=== PATIENT | male | born 1945 | race Caucasian/White ===

== ENCOUNTER 2019-03-01 12:20 | Inpatient (IN) | payer MEDICARE, MEDICAID ==
[~2019-03-01] VITALS: Ht 172.7 cm; Wt 72.6 kg
[2019-03-01 12:30] VITALS: BP 142/74
--- NOTE | 2019-03-01 12:30 | NUR ---
ED Nurse Note: Patient [facility] in by [facility] c/o left forearm infection, patient presents with a reddened area on his left forearm, wound does have a green discolartion to it, draining clear liquid, first noticed by staff at the prison. patient is alert and oriented x4 and ambulatory with a steady gait, tried 2 times for IV. patient did receive a patent IV on his right forearm 20 gauge, will wait for further orders
[2019-03-01] MEDS ORDERED: LACTULOSE20 GM/301 ORAL (12:38)
[2019-03-01] MEDS ORDERED: PROSCAR5 MG ORAL (12:38)
[2019-03-01] MEDS ORDERED: MELATONIN 1 MG1 EAC1 ORAL (12:38)
[2019-03-01] MEDS ORDERED: ATORVASTATIN CA20 MG ORAL (12:38)
[2019-03-01] MEDS ORDERED: OMEPRAZOLE20 M3 ORAL (12:38)
[2019-03-01] MEDS ORDERED: MULTIVITAMINS1 EAC2 ORAL (12:38)
[2019-03-01] MEDS ORDERED: CALCIUM + VITA1 EAC1 PO (12:38)
[2019-03-01] MEDS ORDERED: PRO-STAT LIQUID30 ML ORAL (12:38)
[2019-03-01] MEDS ORDERED: HYDRALAZINE HCL50 MG ORAL (12:38)
[2019-03-01] MEDS ORDERED: LISINOPRIL10 MG ORAL (12:38)
[2019-03-01] MEDS ORDERED: AMLODIPINE BESYL5 MG ORAL (12:38)
[2019-03-01] MEDS ORDERED: DOCUSATE SODIU100 MG ORAL (12:38)
[2019-03-01] MEDS ORDERED: FLOMAX0.4 MG ORAL (12:38)
[2019-03-01] MEDS ORDERED: ACETAMINOPHEN500 M5 ORAL (12:38)
[2019-03-01] MEDS ORDERED: Vancomycin 1.5 GM in NS 275 ML IVPB ONE (13:00)
[2019-03-01] MEDS ORDERED: Ampicillin/Sulbactam Sod 3 GM in NS 110 ML IV SCH (13:00)
[2019-03-01 13:13] LABS: HEMATOCRIT 45.3 % (42.0-52.0); HEMOGLOBIN 14.8 G/DL (14.2-18.0); MEAN CORPUSCULAR VOLUME 91 FL (80-99); PLATELET COUNT 176 K/UL (150-450); RED BLOOD COUNT 4.97 M/UL (4.70-6.10); RED CELL DISTRIBUTION WIDTH 12.1 % (11.6-14.8)
[2019-03-01 13:15] LABS: WHITE BLOOD COUNT 36.7 K/UL (4.8-10.8)
[2019-03-01] MEDS ORDERED: NS 110 ML ONE (13:18)
[2019-03-01] MEDS ORDERED: Unasyn 1.5gm Vial ONE (13:18)
--- NOTE | 2019-03-01 13:23 | Diagnostic Imaging Report ---
Indication: Chest pain Comparison: None A single view chest radiograph was obtained. Findings: No definite infiltrate or pulmonary vascular congestion identified. Minimal platelike atelectasis demonstrated at the left lung base. The heart is enlarged. The aorta is mildly enlarged consistent with atherosclerotic vascular disease. The bones are osteopenic. Impression: No acute disease
[2019-03-01 13:26] LABS: ANION GAP 9 mmol/L (5-15); BLOOD UREA NITROGEN 23 mg/dL (7-18); CALCIUM 8.9 MG/DL (8.5-10.1); CARBON DIOXIDE 27 MMOL/L (21-32); CHLORIDE 101 MMOL/L (98-107); CREATININE 1.4 MG/DL (0.55-1.30); POTASSIUM 4.3 MMOL/L (3.5-5.1); SODIUM 137 MMOL/L (136-145)
[2019-03-01 13:39] LABS: ALANINE AMINOTRANSFERASE 15 U/L (12-78); ALBUMIN 3.2 G/DL (3.4-5.0); ALBUMIN/GLOBULIN RATIO 0.8 (1.0-2.7); ALKALINE PHOSPHATASE 90 U/L (46-116); ASPARTATE AMINO TRANSFERASE 19 U/L (15-37); BILIRUBIN,TOTAL 0.9 MG/DL (0.2-1.0); CKMB 1.1 NG/ML (0.0-3.6); CREATINE KINASE 81 U/L (26-308)
[2019-03-01] MEDS ORDERED: Sodium Chloride 2,200 ML IVLG ONE (13:45)
--- NOTE | 2019-03-01 14:15 | Emergency Room Report ---
History of Present Illness General Chief Complaint: Skin Rash/Abscess Source: Medical Record Present Illness HPI Patient is a 73-year-old male brought in by basic ambulance from facility after increased left upper extremity swelling and redness. He had gradual onset of symptoms. Patient had been noted to have prior chronic debilitation as well as difficulty with speech. He had been brought in for evaluation of left upper extremity infection. History is markedly limited by patient's mental status. Allergies: Coded Allergies: No Known Allergies (Unverified , 03/01/19) Patient History Past Medical History: see triage record Reviewed Nursing Documentation: PMH: Agreed; PSxH: Agreed Nursing Documentation-PMH Past Medical History: No History, Except For Hx Hypertension: Yes - coronary artery disease Review of Systems All Other Systems: limited - Review of systems: Review systems is limited by patient's being a poor historian Physical Exam Vital Signs Date Time Temp Pulse Resp B/P (MAP) Pulse Ox O2 Delivery O2 Flow Rate FiO2 03/01/19 12:27 98.1 64 16 142/74 (96) 95 Room Air Sp02 EP Interpretation: reviewed, normal General Appearance: well appearing, alert, non-toxic, Chronically Ill Head: atraumatic ENT: normal ENT inspection Neck: supple, no bony tend Respiratory: normal inspection, lungs clear, normal breath sounds, no respiratory distress, no retraction, no wheezing Cardiovascular #1: regular rate, rhythm, no edema Gastrointestinal: normal inspection, soft, no mass, no guarding Genitourinary: no CVA tenderness Musculoskeletal: normal inspection, back normal, normal range of motion Neurologic: alert, responsive Psychiatric: normal inspection, judgement/insight normal, mood/affect normal Skin: other - Left upper extremity swelling and redness Medical Decision Making Diagnostic Impression: Primary Impression: Left arm cellulitis Additional Impressions: Severe sepsis Abnormal EKG ER Course Patient presented for left upper extremity swelling and redness. Differential diagnosis include is not limited to cellulitis, abscess, necrotizing fasciitis, septic joint among others. Because of complexity of patient's case laboratory tests and imaging studies were ordered. Patient was noted to have a markedly elevated white blood count. Laboratory testing showed elevated lactic acid level. Blood cultures were obtained as well as lactic acid level. Patient started on IV fluids. He was given IV antibiotics. Patient was reassessed and was noted to have continued good perfusion to his extremities and improvement in vital signs. Patient was noted to have significant infection to the left upper extremity. Dr. Bolton was contacted for inpatient management due to need for inpatient monitoring and treatment. Labs Test 03/01/19 13:00 White Blood Count 36.7 K/UL (4.8-10.8) Red Blood Count 4.97 M/UL (4.70-6.10) Hemoglobin 14.8 G/DL (14.2-18.0) Hematocrit 45.3 % (42.0-52.0) Mean Corpuscular Volume 91 FL (80-99) Mean Corpuscular Hemoglobin 29.7 PG (27.0-31.0) Mean Corpuscular Hemoglobin Concent 32.7 G/DL (32.0-36.0) Red Cell Distribution Width 12.1 % (11.6-14.8) Platelet Count 176 K/UL (150-450) Mean Platelet Volume 6.6 FL (6.5-10.1) Neutrophils (%) (Auto) % (45.0-75.0) Lymphocytes (%) (Auto) % (20.0-45.0) Monocytes (%) (Auto) % (1.0-10.0) Eosinophils (%) (Auto) % (0.0-3.0) Basophils (%) (Auto) % (0.0-2.0) Differential Total Cells Counted 100 Neutrophils % (Manual) 93 % (45-75) Lymphocytes % (Manual) 4 % (20-45) Monocytes % (Manual) 3 % (1-10) Eosinophils % (Manual) 0 % (0-3) Basophils % (Manual) 0 % (0-2) Band Neutrophils 0 % (0-8) Platelet Estimate Adequate Platelet Morphology Normal Red Blood Cell Morphology Normal Sodium Level 137 MMOL/L (136-145) Potassium Level 4.3 MMOL/L (3.5-5.1) Chloride Level 101 MMOL/L (98-107) Carbon Dioxide Level 27 MMOL/L (21-32) Anion Gap 9 mmol/L (5-15) Blood Urea Nitrogen 23 mg/dL (7-18) Creatinine 1.4 MG/DL (0.55-1.30) Estimat Glomerular Filtration Rate mL/min (>60) Glucose Level 116 MG/DL (74-106) Lactic Acid Level 2.40 mmol/L (0.4-2.0) Calcium Level 8.9 MG/DL (8.5-10.1) Total Bilirubin 0.9 MG/DL (0.2-1.0) Aspartate Amino Transf (AST/SGOT) 19 U/L (15-37) Alanine Aminotransferase (ALT/SGPT) 15 U/L (12-78) Alkaline Phosphatase 90 U/L (46-116) Total Creatine Kinase 81 U/L (26-308) Creatine Kinase MB 1.1 NG/ML (0.0-3.6) Creatine Kinase MB Relative Index 1.3 Troponin I 0.000 ng/mL (0.000-0.056) Total Protein 7.2 G/DL (6.4-8.2) Albumin 3.2 G/DL (3.4-5.0) Globulin 4.0 g/dL Albumin/Globulin Ratio 0.8 (1.0-2.7) EKG Diagnostic Results Rate: normal Rhythm: NSR ST Segments: no acute changes Last Vital Signs Date Time Temp Pulse Resp B/P (MAP) Pulse Ox O2 Delivery O2 Flow Rate FiO2 03/01/19 12:30 98.1 86 16 142/74 95 Room Air Status: unchanged Disposition: ADMITTED INPATIENT Condition: Stable Referrals: Jm Bolton MD (PCP) Yang Johnson MD Mar 01, 2019 14:15
[2019-03-01 14:30] VITALS: BP 125/76
--- NOTE | 2019-03-01 14:30 | NUR ---
ED Nurse Note: Patient refused CRE VRE swab
--- NOTE | 2019-03-01 15:16 | NUR ---
NURSE NOTES: Report received from [facility], ER. Patient not on floor at this time.
--- NOTE | 2019-03-01 15:25 | NUR ---
TRANSFER TO FLOOR: Patient transferred to Telemetry as ordered, per . Report given to DENA Boyd
--- NOTE | 2019-03-01 17:57 | Cardiology Progress Note ---
Assessment/Plan Assessment/Plan The patient is seen and examined, full consult note will be dictated. Objective Last 24 Hour Vital Signs Date Time Temp Pulse Resp B/P (MAP) Pulse Ox O2 Delivery O2 Flow Rate FiO2 03/01/19 16:00 77 03/01/19 15:20 98.8 82 16 128/73 95 Room Air 03/01/19 14:30 98.1 82 16 125/76 95 Room Air 03/01/19 12:30 98.1 86 16 142/74 95 Room Air 03/01/19 12:27 98.1 64 16 142/74 (96) 95 Room Air Laboratory Tests Test 03/01/19 13:00 03/01/19 14:40 White Blood Count 36.7 K/UL (4.8-10.8) *H Red Blood Count 4.97 M/UL (4.70-6.10) Hemoglobin 14.8 G/DL (14.2-18.0) Hematocrit 45.3 % (42.0-52.0) Mean Corpuscular Volume 91 FL (80-99) Mean Corpuscular Hemoglobin 29.7 PG (27.0-31.0) Mean Corpuscular Hemoglobin Concent 32.7 G/DL (32.0-36.0) Red Cell Distribution Width 12.1 % (11.6-14.8) Platelet Count 176 K/UL (150-450) Mean Platelet Volume 6.6 FL (6.5-10.1) Neutrophils (%) (Auto) % (45.0-75.0) Lymphocytes (%) (Auto) % (20.0-45.0) Monocytes (%) (Auto) % (1.0-10.0) Eosinophils (%) (Auto) % (0.0-3.0) Basophils (%) (Auto) % (0.0-2.0) Differential Total Cells Counted 100 Neutrophils % (Manual) 93 % (45-75) H Lymphocytes % (Manual) 4 % (20-45) L Monocytes % (Manual) 3 % (1-10) Eosinophils % (Manual) 0 % (0-3) Basophils % (Manual) 0 % (0-2) Band Neutrophils 0 % (0-8) Platelet Estimate Adequate Platelet Morphology Normal Red Blood Cell Morphology Normal Sodium Level 137 MMOL/L (136-145) Potassium Level 4.3 MMOL/L (3.5-5.1) Chloride Level 101 MMOL/L (98-107) Carbon Dioxide Level 27 MMOL/L (21-32) Anion Gap 9 mmol/L (5-15) Blood Urea Nitrogen 23 mg/dL (7-18) H Creatinine 1.4 MG/DL (0.55-1.30) H Estimat Glomerular Filtration Rate mL/min (>60) Glucose Level 116 MG/DL (74-106) H Lactic Acid Level 2.40 mmol/L (0.4-2.0) H 2.10 mmol/L (0.66-2.22) Calcium Level 8.9 MG/DL (8.5-10.1) Total Bilirubin 0.9 MG/DL (0.2-1.0) Aspartate Amino Transf (AST/SGOT) 19 U/L (15-37) Alanine Aminotransferase (ALT/SGPT) 15 U/L (12-78) Alkaline Phosphatase 90 U/L (46-116) Total Creatine Kinase 81 U/L (26-308) Creatine Kinase MB 1.1 NG/ML (0.0-3.6) Creatine Kinase MB Relative Index 1.3 Troponin I 0.000 ng/mL (0.000-0.056) Total Protein 7.2 G/DL (6.4-8.2) Albumin 3.2 G/DL (3.4-5.0) L Globulin 4.0 g/dL Albumin/Globulin Ratio 0.8 (1.0-2.7) L Jim Bae MD Mar 01, 2019 17:57
--- NOTE | 2019-03-01 19:37 | NUR ---
NURSE NOTES: Received pt and repot from DENA Murphy. Observed pt resting in bed with both eyes open. Pt is A/Ox3. front desk monitor is in placed, IV site intact, asymptomatic, and patent. Bed is in the lowest position and locked. Call light within reach. No signs and symptoms of acute distress noted at this time. Will continue plan of care.
--- NOTE | 2019-03-01 19:47 | NUR ---
HAND-OFF: Report given to DENA Matias. Pt. in stable condition. Plan of care endorsed.
[2019-03-01 20:00] VITALS: BP 143/82
[2019-03-01] MEDS: Lactulose 20gm/30ml UDC ORAL SCH (20:42)
[2019-03-01] MEDS: Tamsulosin 0.4mg cap ORAL SCH (20:42)
[2019-03-01] MEDS: Heparin 5000 units/ml inj SUBQ SCH (20:43)
[2019-03-01] MEDS ORDERED: Ampicillin/Sulbactam Sod 3 GM in NS 110 ML IVPB SCH (22:00)
--- NOTE | 2019-03-01 22:18 | Consultation ---
History of Present Illness General Date patient seen: Mar 01, 2019 Reason for Hospitalization: Skin Rash/Abscess Present Illness HPI this is a pleasant 73 year old male [facility] resident with multiple medical comorbidities who was noted to have left upper extremity cellulitis and drainage. Was referred to [facility] for evaluation where he was noted to have leukocytosis, lactic acidosis, abnormal labs. Admitted for care and work up. Surgery called to evaluate and assist with care. patient seen, chart reviewed, patient examined. currently states he is well. tolerating diet. comfortable. n on/v/f/c. he is aware of wound but unsure how long he has had it or how it formed. Allergies: Coded Allergies: No Known Allergies (Unverified , 03/01/19) Medication History Scheduled Acetaminophen (Acetaminophen), 650 MG ORAL Q4H, (Reported) Amino Acids/Protein Hydrolys (Pro-Stat Liquid), 30 ML ORAL DAILY, (Reported) Amlodipine Besylate* (Amlodipine Besylate*), 5 MG ORAL DAILY, (Reported) Atorvastatin Calcium* (Atorvastatin Calcium*), 10 MG ORAL BEDTIME, (Reported) Calcium Carbonate/Vitamin D3 (Calcium + Vitamin D Tablet), 1 EACH PO DAILY, ( Reported) Docusate Sodium* (Docusate Sodium*), 100 MG ORAL DAILY, (Reported) Finasteride* (Proscar*), 5 MG ORAL DAILY, (Reported) Hydralazine Hcl* (Hydralazine Hcl*), 50 MG ORAL EVERY 8 HOURS, (Reported) Lactulose (Lactulose*), 30 ML ORAL QID, (Reported) Lisinopril* (Lisinopril*), 20 MG ORAL DAILY, (Reported) Multivitamins* (Multivitamins*), 1 TAB ORAL DAILY, (Reported) Omeprazole (Omeprazole), 20 MG ORAL DAILY, (Reported) Tamsulosin HCl (Flomax), 0.4 MG ORAL DAILY, (Reported) Scheduled PRN Melatonin (Melatonin 1 Mg Tablet), 3 MG ORAL BEDTIME PRN for Insomnia, (Reported ) Patient History Limited by: medical condition History Provided By: Patient, Medical Record, PMD Healthcare decision maker Resuscitation status Full Code Advanced Directive on File Past Medical/Surgical History Past Medical/Surgical History: (1) Abnormal EKG (2) Severe sepsis (3) Left arm cellulitis Review of Systems Review of Symptoms General ROS: no weight loss or fever Psychological ROS: no depression or mood changes, no memory loss Ophthalmic ROS: no visual changes or eye irritation ENT ROS: no nasal congestion, hearing loss, dizziness Allergy and Immunology ROS: no allergic symptoms or urticaria Hematological and Lymphatic ROS: no swollen glands, unusual bleeding or bruising Endocrine ROS: no polyuria, polydipsia, weight changes, temperature intolerance Respiratory ROS: no cough, shortness of breath, or wheezing Cardiovascular ROS: no chest pain or dyspnea on exertion Gastrointestinal ROS: denies abdominal pain, no bright red blood in stool. Musculoskeletal ROS: no myalgias or arthralgias Neurological ROS: no TIA or stroke symptoms Dermatological ROS: no new or changing skin lesions, rashes or pruritis Physical Exam Physical Exam General appearance: alert, cooperative, no distress, appears stated age Head: Normocephalic, without obvious abnormality, atraumatic Eyes: conjunctivae/corneas clear. PERRL, EOM's intact. Fundi benign Throat: Lips, mucosa, and tongue normal. Teeth and gums normal Neck: supple, symmetrical, trachea midline, no adenopathy, thyroid: not enlarged, symmetric, no tenderness/mass/nodules, no carotid bruit and no JVD Lungs: clear to auscultation bilaterally Heart: regular rate and rhythm, S1, S2 normal, no murmur, click, rub or gallop Abdomen: soft, non-tender. Bowel sounds normal. No masses, no organomegaly Extremities: extremities edema Pulses: 2+ and symmetric Skin: Skin color, texture, turgor normal. No rashes or lesions Neurologic: Grossly normal Last 24 Hour Vital Signs Date Time Temp Pulse Resp B/P (MAP) Pulse Ox O2 Delivery O2 Flow Rate FiO2 03/01/19 20:00 97.7 78 18 143/82 (102) 97 03/01/19 16:00 77 03/01/19 15:46 Room Air 03/01/19 15:20 98.8 82 16 128/73 95 Room Air 03/01/19 14:30 98.1 82 16 125/76 95 Room Air 03/01/19 12:30 98.1 86 16 142/74 95 Room Air 03/01/19 12:27 98.1 64 16 142/74 (96) 95 Room Air Laboratory Tests Test 03/01/19 13:00 03/01/19 14:40 White Blood Count 36.7 K/UL (4.8-10.8) *H Red Blood Count 4.97 M/UL (4.70-6.10) Hemoglobin 14.8 G/DL (14.2-18.0) Hematocrit 45.3 % (42.0-52.0) Mean Corpuscular Volume 91 FL (80-99) Mean Corpuscular Hemoglobin 29.7 PG (27.0-31.0) Mean Corpuscular Hemoglobin Concent 32.7 G/DL (32.0-36.0) Red Cell Distribution Width 12.1 % (11.6-14.8) Platelet Count 176 K/UL (150-450) Mean Platelet Volume 6.6 FL (6.5-10.1) Neutrophils (%) (Auto) % (45.0-75.0) Lymphocytes (%) (Auto) % (20.0-45.0) Monocytes (%) (Auto) % (1.0-10.0) Eosinophils (%) (Auto) % (0.0-3.0) Basophils (%) (Auto) % (0.0-2.0) Differential Total Cells Counted 100 Neutrophils % (Manual) 93 % (45-75) H Lymphocytes % (Manual) 4 % (20-45) L Monocytes % (Manual) 3 % (1-10) Eosinophils % (Manual) 0 % (0-3) Basophils % (Manual) 0 % (0-2) Band Neutrophils 0 % (0-8) Platelet Estimate Adequate Platelet Morphology Normal Red Blood Cell Morphology Normal Sodium Level 137 MMOL/L (136-145) Potassium Level 4.3 MMOL/L (3.5-5.1) Chloride Level 101 MMOL/L (98-107) Carbon Dioxide Level 27 MMOL/L (21-32) Anion Gap 9 mmol/L (5-15) Blood Urea Nitrogen 23 mg/dL (7-18) H Creatinine 1.4 MG/DL (0.55-1.30) H Estimat Glomerular Filtration Rate mL/min (>60) Glucose Level 116 MG/DL (74-106) H Lactic Acid Level 2.40 mmol/L (0.4-2.0) H 2.10 mmol/L (0.66-2.22) Calcium Level 8.9 MG/DL (8.5-10.1) Total Bilirubin 0.9 MG/DL (0.2-1.0) Aspartate Amino Transf (AST/SGOT) 19 U/L (15-37) Alanine Aminotransferase (ALT/SGPT) 15 U/L (12-78) Alkaline Phosphatase 90 U/L (46-116) Total Creatine Kinase 81 U/L (26-308) Creatine Kinase MB 1.1 NG/ML (0.0-3.6) Creatine Kinase MB Relative Index 1.3 Troponin I 0.000 ng/mL (0.000-0.056) Total Protein 7.2 G/DL (6.4-8.2) Albumin 3.2 G/DL (3.4-5.0) L Globulin 4.0 g/dL Albumin/Globulin Ratio 0.8 (1.0-2.7) L Height (Feet): 5 Height (Inches): 8.00 Weight (Pounds): 160 Medications Current Medications Medications (Trade) Dose Ordered Sig/Ajdon Route PRN Reason Start Time Stop Time Status Last Admin Dose Admin Acetaminophen (Tylenol) 650 mg Q6H PRN ORAL Mild Pain/Temp > 100.5 03/01/19 17:00 03/31/19 16:59 Amlodipine Besylate (Norvasc) 5 mg DAILY ORAL 03/02/19 09:00 04/01/19 08:59 Atorvastatin Calcium (Lipitor) 10 mg BEDTIME ORAL 03/01/19 21:00 03/31/19 20:59 03/01/19 20:42 Calcium/Vitamin D (OsCal D) 1 tab DAILY ORAL 03/02/19 09:00 04/01/19 08:59 Docusate Sodium (Colace) 100 mg DAILY ORAL 03/02/19 09:00 04/01/19 08:59 Finasteride (Proscar) 5 mg DAILY ORAL 03/02/19 09:00 04/01/19 08:59 Heparin Sodium (Porcine) (Heparin 5000 units/ml) 5,000 units EVERY 12 HOURS SUBQ 03/01/19 21:00 03/31/19 20:59 03/01/19 20:43 Lactulose (Cephulac) 20 gm FOUR TIMES A DAY ORAL 03/01/19 21:00 03/31/19 20:59 03/01/19 20:42 Meropenem 1 gm/ Sodium Chloride 55 ml @ 110 mls/hr Q12HR@1100,2300 IVPB 03/01/19 23:00 03/06/19 22:59 Multivitamins (Multivitamins) 1 tab DAILY ORAL 03/02/19 09:00 04/01/19 08:59 Tamsulosin HCl (Flomax) 0.4 mg QHS ORAL 03/01/19 21:00 03/31/19 20:59 03/01/19 20:42 Vancomycin HCl (Vanco rx to dose) 1 ea DAILY PRN MISC Per rx protocol 03/01/19 17:00 03/31/19 16:59 Vancomycin HCl 750 mg/Sodium Chloride 275 ml @ 183.333 mls/hr Q24H IVPB 03/02/19 14:00 03/07/19 13:59 Assessment/Plan Problem List: (1) Severe sepsis Assessment & Plan: 73M with leukocytosis, abnormal labs, lactic acidosis, and left arm cellulitis no abscess left arm wound superficial alfredito cute surgical intervention planned will follow with recs -wash wound daily, apply xerofoam and abx, then wrap daily -IV Abx -warm compress -AM labs will follow with recs thank you ICD Codes: A41.9 - Sepsis, unspecified organism; R65.20 - Severe sepsis without septic shock SNOMED: 95599877 (2) Left arm cellulitis ICD Codes: L03.114 - Cellulitis of left upper limb SNOMED: 970483024 Moody Siddiqi Mar 01, 2019 22:18
[2019-03-01] MEDS: Meropenem 1 GM in NS 55 ML IVPB SCH (22:49)
--- NOTE | 2019-03-01 23:30 | Consultation ---
DATE OF CONSULTATION: 03/01/2019 CARDIOLOGY CONSULTATION CONSULTING PHYSICIAN: Jim Bae M.D. REFERRING PHYSICIAN: Jm Bolton M.D. REASON FOR CONSULTATION: Management of coronary artery disease. HISTORY OF PRESENT ILLNESS: This is a very unfortunate 73-year-old gentleman, a resident of [facility], who was brought in by ambulance for evaluation and management of redness of the left arm with associated cough. The patient is a very poor historian and is not capable of providing any history. This report is prepared by using the medical records from the emergency department. At the time of arrival to the hospital, the patient was afebrile with temperature of 98.1 degrees Fahrenheit, blood pressure was 142/74 mmHg, and heart rate was 64. The patient has history of coronary artery disease and also risk factors such as hyperlipidemia. Initial laboratory in the emergency department revealed severe leukocytosis with WBC count of 36.7 and left shift. The patient also showed elevated BUN and creatinine 23 and 1.4 respectively. The first troponin I level was within normal limits at 0. The patient was admitted to telemetry for further evaluation and management. Cardiology consultation was made at the request of Dr. Bolton for management of coronary artery disease. PAST MEDICAL HISTORY: Hypertension, BPH, hyperlipidemia, coronary artery disease, GERD, dysphagia, and encephalopathy. MEDICATIONS: Acetaminophen 650 q.4 h. p.r.n. pain, ProStat liquid 30 mL p.o. daily, amlodipine 5 mg p.o. daily, atorvastatin 10 mg p.o. at bedtime, calcium and vitamin D tablet one tablet daily, Colace 100 mg daily, Proscar 5 mg p.o. daily, hydralazine 50 mg q.8 hours, lactulose 30 mL q.i.d., lisinopril 20 mg p.o. daily, melatonin 3 mg p.o. at bedtime p.r.n. insomnia, multivitamin one tablet p.o. daily, omeprazole 20 mg p.o. daily, and tamsulosin 0.4 mg p.o. daily. ALLERGIES: No known drug allergies. FAMILY HISTORY: No premature coronary artery disease in the first-degree relatives according to the records. REVIEW OF SYSTEMS: HEENT: Denies any headache, diplopia, or blurred vision. CONSTITUTIONAL: Denies any fever, chills, night sweats, or weight loss. CARDIOVASCULAR: Denies any chest pain, shortness breath, PND, orthopnea, or leg swelling. PULMONARY: Denies any cough, hemoptysis, or wheezing. Positive cough. GASTROINTESTINAL: Denies any nausea, vomiting, diarrhea, constipation, abdominal pain, or GI bleed. GENITOURINARY: Denies any dysuria, hematuria, or incontinence. NEUROLOGY: Denies any motor dysfunction, sensory deficit, or altered speech. SOCIAL HISTORY: Denies any tobacco, alcohol, or illicit drug use. Resident of [facility]. PHYSICAL EXAMINATION: VITAL SIGNS: Blood pressure was 142/74, pulse of 64, respirations of 16, O2 saturation of 95%, and temperature 98.1 degrees Fahrenheit. GENERAL: The patient is a very unfortunate 73-year-old gentleman, who is awake and poor historian. HEENT: Atraumatic and normocephalic. Anicteric. Pupils are equal, round, and reactive to light and accommodation. Extraocular muscles intact. NECK: JVP less than 5 cm. No carotid bruit. Carotid upstroke is 2+ bilaterally. CARDIOVASCULAR: Normal S1, S2. Regular rate and rhythm. No murmurs, gallops, or rubs. PMI is at fourth intercostal space in the midclavicular line. LUNGS: Clear to auscultation bilaterally. ABDOMEN: Soft, nontender, and nondistended. No hepatosplenomegaly. Positive bowel sounds. EXTREMITIES: Left arm in the dressing. Otherwise, no edema, clubbing, or cyanosis in the lower extremity. LABORATORY FINDINGS: Sodium 137, potassium is 4.3, chloride 101, bicarbonate 27, BUN of 23, creatinine 1.4, and glucose 116. Calcium is 8.9. Troponin I is 0. WBC 36.7, hemoglobin 14.8, hematocrit of 45.3, and platelet counts is 176,000. Chest x-ray showed no acute cardiopulmonary disease. ASSESSMENT AND PLAN: The patient is a very unfortunate 73-year-old gentleman, who is seen in Cardiology consultation. 1. History of coronary artery disease. I would like to continue the patient on atorvastatin given the fact that the patient will also be benefitted from aspirin 81 mg daily. 2. History of hypertension. We will continue with amlodipine, hydralazine, as well as lisinopril. 3. Left arm cellulitis. IV antibiotics at ID recommendation. 4. History of encephalopathy. 5. History of BPH. He will be continued on finasteride and tamsulosin. 6. History of hyperlipidemia. We will continue with atorvastatin. I would like to thank, Dr. Bolton, for allowing me to participate in the care of this patient. Jim Bae M.D. DR: LIBBY JOB#: [id number] CC:
[2019-03-02] VITALS (9 sets, daily range): BP systolic 133–163; BP diastolic 67–106
--- NOTE | 2019-03-02 04:43 | NUR ---
NURSE NOTES: Informed Dr. Bolton regarding pt's blood culture result for Gram positive cocci in chains.
[2019-03-02 07:16] LABS: HEMATOCRIT 39.1 % (42.0-52.0); HEMOGLOBIN 13.2 G/DL (14.2-18.0); MEAN CORPUSCULAR VOLUME 91 FL (80-99); PLATELET COUNT 162 K/UL (150-450); RED BLOOD COUNT 4.29 M/UL (4.70-6.10)
[2019-03-02 07:20] LABS: WHITE BLOOD COUNT 26.4 K/UL (4.8-10.8)
[2019-03-02 07:22] LABS: ANION GAP 10 mmol/L (5-15); BLOOD UREA NITROGEN 17 mg/dL (7-18); CALCIUM 8.2 MG/DL (8.5-10.1); CARBON DIOXIDE 23 MMOL/L (21-32); CHLORIDE 107 MMOL/L (98-107); CREATININE 1.1 MG/DL (0.55-1.30); POTASSIUM 3.7 MMOL/L (3.5-5.1); SODIUM 140 MMOL/L (136-145)
--- NOTE | 2019-03-02 07:34 | NUR ---
NURSE NOTES: Received WBC result from engineering laboratory technician. Current WBC (26.4) is trending down.
--- NOTE | 2019-03-02 07:35 | NUR ---
HAND-OFF: Report given to DENA العراقي.
--- NOTE | 2019-03-02 07:36 | NUR ---
NURSE NOTES: Received patient in bed. On room air. In no distress. Awake, verbal, able to verbalize some needs. Currently eating breakfast meal, able to feed self. Jerry light within reach. Bed in lowest position, bed alarm is on. Will continue plan of care.
[2019-03-02] MEDS: Lactulose 20gm/30ml UDC ORAL SCH (09:08)
[2019-03-02] MEDS: Calcium Carbonate 500mg w/Vit D 200iu tab ORAL SCH (09:08)
[2019-03-02] MEDS: Docusate 100mg cap ORAL SCH (09:09)
[2019-03-02] MEDS: Heparin 5000 units/ml inj SUBQ SCH ×2 (09:12→20:36)
--- NOTE | 2019-03-02 10:55 | History & Physical ---
History and Physical History & Physicial Full Dictation in progress. Jm Bolton MD Mar 02, 2019 10:55
[2019-03-02] MEDS: Meropenem 1 GM in NS 55 ML IVPB SCH ×2 (12:06→23:40)
[2019-03-02] MEDS ORDERED: Lactulose 20gm/30ml UDC ORAL PRN (12:30)
--- NOTE | 2019-03-02 13:45 | NUR ---
NURSE NOTES: Dr. Higgins at bedside.
[2019-03-02] MEDS: Vancomycin 750mg/NS 275ml IVPB SCH ×2 (14:21)
--- NOTE | 2019-03-02 14:36 | Infectious Diseases Prog Note ---
Assessment/Plan Problems: (1) Abscess of forearm, left Assessment & Plan: with purulence and cellulitis , continue wide spectrum antibiotics with vancomycin and meropenem pending final cultures , send abscess fluids culture if not done yet , apply topical bactroban (2) Left arm cellulitis Assessment & Plan: continue antibiotics pending cultures , local wound care (3) Sepsis Assessment & Plan: due to the above with gram positive cocci , already on vancomycin pending final cultures , will repeat blood culture to confirm clearance and obtain echo Subjective Constitutional: Reports: fatigue HEENT: Reports: no symptoms Respiratory: Reports: no symptoms Breasts: Reports: no symptoms Cardiovascular: Reports: no symptoms Gastrointestinal/Abdominal: Reports: no symptoms Genitourinary: Reports: no symptoms Neurologic: Reports: no symptoms Psychiatric: Reports: no symptoms Skin: Reports: ulcer, other - abscess Musculoskeletal: Reports: pain, swelling - left forearm Allergies: Coded Allergies: No Known Allergies (Unverified , 03/01/19) Objective Vital Signs Last 24 Hour Vital Signs Date Time Temp Pulse Resp B/P (MAP) Pulse Ox O2 Delivery O2 Flow Rate FiO2 03/02/19 12:00 98.2 77 21 140/106 (117) 95 03/02/19 09:08 78 151/76 03/02/19 09:00 Room Air 03/02/19 08:00 98.2 78 20 151/76 (101) 96 03/02/19 04:00 97.9 76 18 146/67 (93) 98 03/02/19 04:00 68 03/02/19 00:00 97.4 64 19 139/71 (93) 96 03/02/19 00:00 74 03/01/19 21:00 Room Air 03/01/19 20:00 66 03/01/19 20:00 97.7 78 18 143/82 (102) 97 03/01/19 16:00 77 03/01/19 15:46 Room Air 03/01/19 15:20 98.8 82 16 128/73 95 Room Air Height (Feet): 5 Height (Inches): 8.00 Weight (Pounds): 160 General Appearance: WD/WN, no acute distress, cachetic HEENT: normocephalic, atraumatic, anicteric, mucous membranes moist, PERRL Respiratory/Chest: chest wall non-tender, lungs clear, normal breath sounds, no respiratory distress, no accessory muscle use Cardiovascular: normal peripheral pulses, normal rate, regular rhythm, no gallop/murmur, no JVD Abdomen: normal bowel sounds, soft, non tender, no organomegaly, non distended , no mass, no scars Genitourinary: normal external genitalia Extremities: no cyanosis, no clubbing Skin: no rash, ulcers, other - cellulitis on the left forearm with skin abscess Neurologic/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, no motor/sensory deficits, alert, responsive Lymphatic: no neck adenopathy, no groin adenopathy Musculoskeletal: normal muscle bulk, no effusion Microbiology Date/Time Source Procedure Growth Status 03/01/19 13:15 Blood Blood Culture - Preliminary Resulted 03/01/19 13:00 Blood Blood Culture - Preliminary Gram Positive Cocci Resulted Laboratory Tests Test 03/01/19 14:40 03/02/19 06:15 03/02/19 09:00 Lactic Acid Level 2.10 mmol/L (0.66-2.22) 1.00 mmol/L (0.4-2.0) White Blood Count 26.4 K/UL (4.8-10.8) *H Red Blood Count 4.29 M/UL (4.70-6.10) L Hemoglobin 13.2 G/DL (14.2-18.0) L Hematocrit 39.1 % (42.0-52.0) L Mean Corpuscular Volume 91 FL (80-99) Mean Corpuscular Hemoglobin 30.9 PG (27.0-31.0) Mean Corpuscular Hemoglobin Concent 33.9 G/DL (32.0-36.0) Red Cell Distribution Width 11.0 % (11.6-14.8) L Platelet Count 162 K/UL (150-450) Mean Platelet Volume 7.3 FL (6.5-10.1) Neutrophils (%) (Auto) % (45.0-75.0) Lymphocytes (%) (Auto) % (20.0-45.0) Monocytes (%) (Auto) % (1.0-10.0) Eosinophils (%) (Auto) % (0.0-3.0) Basophils (%) (Auto) % (0.0-2.0) Differential Total Cells Counted 100 Neutrophils % (Manual) 87 % (45-75) H Lymphocytes % (Manual) 6 % (20-45) L Monocytes % (Manual) 7 % (1-10) Eosinophils % (Manual) 0 % (0-3) Basophils % (Manual) 0 % (0-2) Band Neutrophils 0 % (0-8) Platelet Estimate Adequate Platelet Morphology Normal Red Blood Cell Morphology Normal Sodium Level 140 MMOL/L (136-145) Potassium Level 3.7 MMOL/L (3.5-5.1) Chloride Level 107 MMOL/L (98-107) Carbon Dioxide Level 23 MMOL/L (21-32) Anion Gap 10 mmol/L (5-15) Blood Urea Nitrogen 17 mg/dL (7-18) Creatinine 1.1 MG/DL (0.55-1.30) Estimat Glomerular Filtration Rate mL/min (>60) Glucose Level 89 MG/DL (74-106) Calcium Level 8.2 MG/DL (8.5-10.1) L Current Medications Medications (Trade) Dose Ordered Sig/Jadon Route PRN Reason Start Time Stop Time Status Last Admin Dose Admin Acetaminophen (Tylenol) 650 mg Q6H PRN ORAL Mild Pain/Temp > 100.5 03/01/19 17:00 03/31/19 16:59 Amlodipine Besylate (Norvasc) 10 mg DAILY ORAL 03/03/19 09:00 04/02/19 08:59 Atorvastatin Calcium (Lipitor) 10 mg BEDTIME ORAL 03/01/19 21:00 03/31/19 20:59 03/01/19 20:42 Calcium/Vitamin D (OsCal D) 1 tab DAILY ORAL 03/02/19 09:00 04/01/19 08:59 03/02/19 09:08 Docusate Sodium (Colace) 100 mg DAILY ORAL 03/02/19 09:00 04/01/19 08:59 03/02/19 09:09 Finasteride (Proscar) 5 mg DAILY ORAL 03/02/19 09:00 04/01/19 08:59 03/02/19 09:09 Heparin Sodium (Porcine) (Heparin 5000 units/ml) 5,000 units EVERY 12 HOURS SUBQ 03/01/19 21:00 03/31/19 20:59 03/02/19 09:12 Lactulose (Cephulac) 20 gm Q8H PRN ORAL Constipation 03/02/19 12:30 04/01/19 12:29 Meropenem 1 gm/ Sodium Chloride 55 ml @ 110 mls/hr Q12HR@1100,2300 IVPB 03/01/19 23:00 03/06/19 22:59 03/02/19 12:06 Multivitamins (Multivitamins) 1 tab DAILY ORAL 03/02/19 09:00 04/01/19 08:59 03/02/19 09:08 Tamsulosin HCl (Flomax) 0.4 mg QHS ORAL 03/01/19 21:00 03/31/19 20:59 03/01/19 20:42 Vancomycin HCl (Vanco rx to dose) 1 ea DAILY PRN MISC Per rx protocol 03/01/19 17:00 03/31/19 16:59 Vancomycin HCl 750 mg/Sodium Chloride 275 ml @ 183.333 mls/hr Q24H IVPB 03/02/19 14:00 03/07/19 13:59 03/02/19 14:21 Arnie Higgins M.D. Mar 02, 2019 14:35
--- NOTE | 2019-03-02 14:39 | NUR ---
CASE MANAGEMENT: REVIEW 73 YR OLD MALE BIBA FROM [facility] CC: SKIN RASH/ ABSCESS SI: LEFT UPPER EXTREMITY CELLULITIS 98.1 64 16 142/74 95% RA WBC 36.7; BUN+ 23; CR 1.4; LA 2.40 IS: IV VANCOMYCIN X1 IV AMPICILLIN X1 IVF NS BOLUS X2 : TO 2E TELE UNIT PLAN: BLOOD CX PENDING CARDIO CONSULT
--- NOTE | 2019-03-02 15:45 | History and Physical Report ---
DATE OF ADMISSION: 03/01/2019 SOURCE OF INFORMATION: The patient and EMR. HISTORY OF PRESENT ILLNESS: The patient is a pleasant white male. He has a chronic history of psychiatric disorder. Reportedly, he had infection in the left upper extremity that is worsening. He is currently residing in a longterm facility, was transferred for the completion of workup. At the time of evaluation, the patient is complaining of mild pain in the left upper extremity. Denies fever or chills. Poor historian. REVIEW OF SYSTEMS: Limited evaluation, however, 12 elements of review of systems within this limitation is obtained as detailed in HPI. CURRENT HOSPITAL MEDICATIONS: Including amlodipine, Proscar, vancomycin. PAST MEDICAL HISTORY: Including but not limited to, BPH, hypertension, psychiatric disorder, decline in cognition. SOCIAL HISTORY: The patient is residing in a longterm facility. No active history of tobacco use, alcohol abuse or drug abuse was reported. PAST SURGICAL HISTORY: Unknown. PHYSICAL EXAMINATION: VITAL SIGNS: Blood pressure 160/80, temperature 98.2, pulse oximetry 98% on room air, respiratory rate 18, and pulse rate 72. HEAD AND NECK: Atraumatic and normocephalic. CHEST: Clear to auscultation. HEART: S1, S2. Regular rate and rhythm. ABDOMEN: Soft. No organomegaly MUSCULOSKELETAL: No gross lateralized motor deficit. Positive for diffuse erythema and warmness on the left upper extremity. NEUROLOGY: The patient is awake, alert x1. LABORATORY DATA: Laboratory work dated March 01, 2019, shows WBC 26, hemoglobin of 13.2, and platelets of 162. Lactic acid of 2.4. ASSESSMENT: 1. Sepsis. 2. Left upper extremity cellulitis. 3. Hypertension. 4. BPH. 5. Psychiatric disorder. 6. GI and DVT prophylaxis. PLAN OF CARE: Start the patient on IV hydration and crystalloids. IV antibiotics. Pending the cultures. Infectious Disease, Dr. Higgins notified. Time of this dictation does not reflect the actual time of encounter. Jm Bolton M.D. DR: SONJA JOB#: [id number] CC:
--- NOTE | 2019-03-02 16:40 | Surgery Progress Note ---
Surgery Progress Note Subjective Additional Comments afebrile labs improving micro noted and possible contaminant exam stable Objective Last 24 Hour Vital Signs Date Time Temp Pulse Resp B/P (MAP) Pulse Ox O2 Delivery O2 Flow Rate FiO2 03/02/19 12:00 98.2 77 21 140/106 (117) 95 03/02/19 11:32 65 03/02/19 09:08 78 151/76 03/02/19 09:00 Room Air 03/02/19 08:00 98.2 78 20 151/76 (101) 96 03/02/19 07:48 65 03/02/19 04:00 97.9 76 18 146/67 (93) 98 03/02/19 04:00 68 03/02/19 00:00 97.4 64 19 139/71 (93) 96 03/02/19 00:00 74 03/01/19 21:00 Room Air 03/01/19 20:00 66 03/01/19 20:00 97.7 78 18 143/82 (102) 97 I&O Intake and Output 03/01/19 03/02/19 19:00 07:00 Intake Total 3200 ml Balance 3200 ml Intake IV Total 3200 ml # Voids 2 Dressing: saturated Wound: clean Cardiovascular: RSR Respiratory: clear Abdomen: soft, non-tender, present bowel sounds Extremities: edema, tenderness, no cyanosis Laboratory Tests Test 03/02/19 06:15 03/02/19 09:00 White Blood Count 26.4 K/UL (4.8-10.8) *H Red Blood Count 4.29 M/UL (4.70-6.10) L Hemoglobin 13.2 G/DL (14.2-18.0) L Hematocrit 39.1 % (42.0-52.0) L Mean Corpuscular Volume 91 FL (80-99) Mean Corpuscular Hemoglobin 30.9 PG (27.0-31.0) Mean Corpuscular Hemoglobin Concent 33.9 G/DL (32.0-36.0) Red Cell Distribution Width 11.0 % (11.6-14.8) L Platelet Count 162 K/UL (150-450) Mean Platelet Volume 7.3 FL (6.5-10.1) Neutrophils (%) (Auto) % (45.0-75.0) Lymphocytes (%) (Auto) % (20.0-45.0) Monocytes (%) (Auto) % (1.0-10.0) Eosinophils (%) (Auto) % (0.0-3.0) Basophils (%) (Auto) % (0.0-2.0) Differential Total Cells Counted 100 Neutrophils % (Manual) 87 % (45-75) H Lymphocytes % (Manual) 6 % (20-45) L Monocytes % (Manual) 7 % (1-10) Eosinophils % (Manual) 0 % (0-3) Basophils % (Manual) 0 % (0-2) Band Neutrophils 0 % (0-8) Platelet Estimate Adequate Platelet Morphology Normal Red Blood Cell Morphology Normal Sodium Level 140 MMOL/L (136-145) Potassium Level 3.7 MMOL/L (3.5-5.1) Chloride Level 107 MMOL/L (98-107) Carbon Dioxide Level 23 MMOL/L (21-32) Anion Gap 10 mmol/L (5-15) Blood Urea Nitrogen 17 mg/dL (7-18) Creatinine 1.1 MG/DL (0.55-1.30) Estimat Glomerular Filtration Rate mL/min (>60) Glucose Level 89 MG/DL (74-106) Calcium Level 8.2 MG/DL (8.5-10.1) L Lactic Acid Level 1.00 mmol/L (0.4-2.0) Plan Problems: (1) Severe sepsis Assessment & Plan: 73M with leukocytosis, abnormal labs, lactic acidosis, and left arm cellulitis no abscess left arm wound superficial alfredito cute surgical intervention planned will follow with recs -wash wound daily, apply xerofoam and abx, then wrap daily -IV Abx -warm compress -AM labs UA, CXR, abx as per ID will follow with recs thank you (2) Left arm cellulitis Moody Siddiqi Mar 02, 2019 16:40
--- NOTE | 2019-03-02 18:00 | Consultation ---
DATE OF CONSULTATION: 03/01/2019 INFECTIOUS DISEASE CONSULTATION CONSULTING PHYSICIAN: Arnie Higgins M.D. REFERRING PHYSICIAN: Jm Bolton M.D. REASON FOR CONSULTATION: Sepsis, left forearm abscess, and skin cellulitis. Recommendation for antimicrobial treatment. HISTORY OF PRESENT ILLNESS: The patient is a 73-year-old male with past medical history of coronary artery disease, hypertension, who was brought in via ambulance from his [facility] facility to [facility] emergency room for increasing left upper extremity swelling, redness, and purulent discharge. The patient had multiple bruises on his left arm and he was scratching them with dirty hands as per his statement and they became more red and infected and started draining purulent like material. The patient had more redness and purulent discharge from the left forearm, so he was sent to the hospital for antibiotics treatment and further management. The patient was started on Vanco and Unasyn by the admitting physician and Infectious Disease consultation was requested for antibiotics treatment and further care since his white count was significantly elevated at 36.7 suggesting sepsis. As of note, the patient is a poor historian, could not provide good history. History was mainly obtained from the medical record and nursing staff. REVIEW OF SYSTEMS: A 14-point of system reviewed were all negative apart from the one I mentioned above in my H and P. PAST MEDICAL HISTORY: Significant for coronary artery disease, hypertension. PAST SURGICAL HISTORY: Negative, not on record. SOCIAL HISTORY: The patient lives in the [facility] facility. No recent drugs, tobacco, or alcohol. FAMILY HISTORY: Not contributory. ALLERGIES: He has no known drug allergies. MEDICATIONS: The patient is on Vanco dosed by pharmacy and Unasyn. For the rest of his medications, please refer to MAR. LABORATORY DATA: Labs showed white count of 36.7, hemoglobin of 14.8, platelet count of 176. BUN of 17, creatinine of 1.1. MICROBIOLOGY: Blood culture x2 pending. IMAGING: Chest x-ray showed no acute disease. PHYSICAL EXAMINATION: VITAL SIGNS: Temperature 98.8, pulse 82, respirations 16, blood pressure 128/73, saturation 95% on room air. GENERAL: Elderly male lying in bed. Awake, alert, not in acute distress. HEENT: Normocephalic, atraumatic. Pupils reactive to light. Pale sclerae. Moist oral mucosa. No exudate. Poor dental hygiene. NECK: Supple. No lymphadenopathy. CARDIOVASCULAR: Tachycardic. S1, S2 normal. No murmur. No gallop. LUNGS: Clear bilaterally. No wheezing or rhonchi. Diminished breathing sounds at the bases. ABDOMEN: Soft, nontender, nondistended. Normal bowel sounds. No hepatosplenomegaly or ascites. EXTREMITIES: He had left forearm large skin wound with purulence and subcutaneous area, large red area at the base. Tender to palpation. No decreased range of motion in his wrists or hands. Lower extremities, no edema or cyanosis. SKIN: No rash. No hives, but left arm cellulitis with purulence drainage and skin wound. ASSESSMENT AND RECOMMENDATION: 1. Left forearm skin abscess. We will switch Unasyn to meropenem to broaden his coverage pending his blood culture. Continue vancomycin dose per pharmacy to cover for sepsis. We will send wound culture if not done from ED. 2. Left forearm cellulitis. Management the same as above. Continue wide-spectrum antibiotics. Keep the arm elevated. Avoid scratching. Local wound care. 3. Sepsis with leukocytosis, suspect due to the above. We will broaden his coverage to meropenem and Vanco for now pending blood culture and wound culture results. We will obtain echocardiogram if his culture is positive for any growth. Thank you for the consult. ID will continue to follow. Arnie Higgins M.D. DR: ELENA JOB#: [id number] CC:
--- NOTE | 2019-03-02 19:30 | NUR ---
NURSE NOTES: Received patient from Dulce Maria FERNANDES. Patient in bed, on room air, alert and oriented x2 to self and place. On room air, no s/s of respiratory distress. No c/o pain or SOB. Bed in low position, locked, bed alarm on, call light within reach. 20 gauge IV on right forearm intact, patent, no signs of infiltration.
--- NOTE | 2019-03-02 19:50 | NUR ---
HAND-OFF: Report given to Mirza Ulloa RN.
[2019-03-02] MEDS: Tamsulosin 0.4mg cap ORAL SCH (20:31)
--- NOTE | 2019-03-02 21:15 | NUR ---
NURSE NOTES: Received orders from Dr. Bae to start metoprolol 50mg q12 hrs because patient had an episode of 5 beats of V-tach during the day.
--- NOTE | 2019-03-02 21:29 | Cardiology Progress Note ---
Assessment/Plan Assessment/Plan 1. History of coronary artery disease, continue atorvastatin and aspirin. 2. History of hypertension, continue amlodipine, hydralazine and lisinopril. 3. Non-sustained ventricular tachycardia, start metoprolol, Mg sulfate 2 gr IVPB x 1 dose. 4. Left arm cellulitis. IV antibiotics at ID recommendation. 5. History of encephalopathy. 6. History of BPH, on finasteride and tamsulosin. 7. History of hyperlipidemia, continue atorvastatin. Subjective Subjective A short run of non-sustained VT noted (5 beats) Objective Last 24 Hour Vital Signs Date Time Temp Pulse Resp B/P (MAP) Pulse Ox O2 Delivery O2 Flow Rate FiO2 03/02/19 20:00 98.5 67 20 147/84 (105) 96 03/02/19 18:21 133/79 (97) 03/02/19 16:00 98.2 62 21 163/83 (109) 94 03/02/19 15:26 60 03/02/19 12:00 98.2 77 21 140/106 (117) 95 03/02/19 11:32 65 03/02/19 09:08 78 151/76 03/02/19 09:00 Room Air 03/02/19 08:00 98.2 78 20 151/76 (101) 96 03/02/19 07:48 65 03/02/19 04:00 97.9 76 18 146/67 (93) 98 03/02/19 04:00 68 03/02/19 00:00 97.4 64 19 139/71 (93) 96 03/02/19 00:00 74 Intake and Output 03/01/19 03/02/19 19:00 07:00 Intake Total 3200 ml Balance 3200 ml Intake IV Total 3200 ml # Voids 2 2D Echo: LVEf 65%, Mild LVH, Grade I LVDD, RVSP 14 mmHg Laboratory Tests Test 03/02/19 06:15 03/02/19 09:00 White Blood Count 26.4 K/UL (4.8-10.8) *H Red Blood Count 4.29 M/UL (4.70-6.10) L Hemoglobin 13.2 G/DL (14.2-18.0) L Hematocrit 39.1 % (42.0-52.0) L Mean Corpuscular Volume 91 FL (80-99) Mean Corpuscular Hemoglobin 30.9 PG (27.0-31.0) Mean Corpuscular Hemoglobin Concent 33.9 G/DL (32.0-36.0) Red Cell Distribution Width 11.0 % (11.6-14.8) L Platelet Count 162 K/UL (150-450) Mean Platelet Volume 7.3 FL (6.5-10.1) Neutrophils (%) (Auto) % (45.0-75.0) Lymphocytes (%) (Auto) % (20.0-45.0) Monocytes (%) (Auto) % (1.0-10.0) Eosinophils (%) (Auto) % (0.0-3.0) Basophils (%) (Auto) % (0.0-2.0) Differential Total Cells Counted 100 Neutrophils % (Manual) 87 % (45-75) H Lymphocytes % (Manual) 6 % (20-45) L Monocytes % (Manual) 7 % (1-10) Eosinophils % (Manual) 0 % (0-3) Basophils % (Manual) 0 % (0-2) Band Neutrophils 0 % (0-8) Platelet Estimate Adequate Platelet Morphology Normal Red Blood Cell Morphology Normal Sodium Level 140 MMOL/L (136-145) Potassium Level 3.7 MMOL/L (3.5-5.1) Chloride Level 107 MMOL/L (98-107) Carbon Dioxide Level 23 MMOL/L (21-32) Anion Gap 10 mmol/L (5-15) Blood Urea Nitrogen 17 mg/dL (7-18) Creatinine 1.1 MG/DL (0.55-1.30) Estimat Glomerular Filtration Rate mL/min (>60) Glucose Level 89 MG/DL (74-106) Calcium Level 8.2 MG/DL (8.5-10.1) L Lactic Acid Level 1.00 mmol/L (0.4-2.0) Microbiology Date/Time Source Procedure Growth Status 03/01/19 13:15 Blood Blood Culture - Preliminary Resulted 03/01/19 13:00 Blood Blood Culture - Preliminary Gram Positive Cocci Resulted Objective HEENT: Atraumatic and normocephalic. Anicteric. Pupils are equal, round, and reactive to light and accommodation. Extraocular muscles intact. NECK: JVP less than 5 cm. No carotid bruit. Carotid upstroke is 2+ bilaterally. CARDIOVASCULAR: Normal S1, S2. Regular rate and rhythm. No murmurs, gallops, or rubs. PMI is at fourth intercostal space in the midclavicular line. LUNGS: Clear to auscultation bilaterally. ABDOMEN: Soft, nontender, and nondistended. No hepatosplenomegaly. Positive bowel sounds. EXTREMITIES: Left arm in the dressing. Otherwise, no edema, clubbing, or cyanosis in the lower extremity. Jim Bae MD Mar 02, 2019 21:29
[2019-03-02] MEDS: Metoprolol Tartrate 50mg tab ORAL SCH (21:30)
--- NOTE | 2019-03-02 21:30 | NUR ---
NURSE NOTES: First dose of metoprolol 50 mg po given. BP 153/84, HR 63.
--- NOTE | 2019-03-02 22:15 | NUR ---
NURSE NOTES: Spoke with DR. Bae regarding Patient's HR going down to 50's and that metoprolol was given earlier. No orders.
--- NOTE | 2019-03-02 22:58 | NUR ---
NURSE NOTES: Notified Dr. Bae regarding patient's HR decreasing down into 45's. BP 141/97. No change in LOC. No orders from Dr. Bae. Instructed to call him if HR goes down below 35 during sleep.
--- NOTE | 2019-03-02 23:30 | Consultation ---
DATE OF CONSULTATION: 03/02/2019 CONSULTING PHYSICIAN: Annmarie Triana M.D. HISTORY OF PRESENT ILLNESS: This is a 73-year-old, male with a history of coronary artery disease, hypertension, dementia, anxiety, and insomnia who has been brought into the emergency room from the SNF for increasing left upper extremity swelling and redness. The patient is forgetful and is a poor historian. He has memory impairment. He is able to answer simple questions. He has history of insomnia and anxiety disorder as well as dementia. PAST PSYCHIATRIC HISTORY: Anxiety, depression, and insomnia, on melatonin only. PAST MEDICAL HISTORY: BPH and hypertension. ALLERGIES: No known drug allergies. SUBSTANCE ABUSE HISTORY: No known history of illicit drug use or alcohol. MENTAL STATUS EXAMINATION: The patient is alert and oriented times self. He knows he is in the hospital. Mood is anxious and affect is constricted. Congruent mood. Thought process is concrete. Thought content, no suicidal or homicidal ideations. Memory is impaired. Insight and judgment is impaired. ASSESSMENT: Lyons I Dementia [id number]. Anxiety disorder. Lyons II Deferred. Lyons III As above. Lyons IV Low. Lyons V 50. PLAN: 1. We will start the patient on Remeron 7.5 at bedtime for insomnia and anxiety. 2. We will continue to follow and readjust the medications. 3. Discussed with the staff. Annmarie Triana M.D. DR: GERSON JOB#: [id number] CC:
[2019-03-03] VITALS: BP 124/74
[2019-03-03 04:00] VITALS: BP 126/73
[2019-03-03 05:39] LABS: APPEARANCE,URINE CLEAR; BILIRUBIN, URINE NEGATIVE (NEGATIVE); GLUCOSE, URINE (UA) NEGATIVE (NEGATIVE); KETONES,URINE 1+ (NEGATIVE); LEUKOCYTE ESTERASE ,URINE 1+ (NEGATIVE); NITRITE,URINE NEGATIVE (NEGATIVE); PH,URINE 5 (4.5-8.0); PROTEIN,URINE 1+ (NEGATIVE); UROBILINOGEN,URINE NORMAL MG/DL (0.0-1.0)
[2019-03-03 05:54] LABS: COLOR,URINE YELLOW
--- NOTE | 2019-03-03 07:30 | NUR ---
NURSE NOTES: Nurse report given by DENA Blue. Patient's sleeping in bed but easily awaken. Denies pain, no s/s of distress or SOB. Bed low and locked, call light within reach, side rails x 2, safety precaution is applied. L upper arm cellulitis present, dressing intact. IV is patent and asymptomatic. HR is 41. Will continue to monitor.
[2019-03-03 07:51] LABS: ANION GAP 6 mmol/L (5-15); BLOOD UREA NITROGEN 13 mg/dL (7-18); CALCIUM 8.2 MG/DL (8.5-10.1); CARBON DIOXIDE 26 MMOL/L (21-32); CHLORIDE 109 MMOL/L (98-107); POTASSIUM 4.1 MMOL/L (3.5-5.1); SODIUM 140 MMOL/L (136-145)
[2019-03-03 07:52] LABS: BASOPHILS % (AUTO) 0.8 % (0.0-2.0); EOSINOPHILS % (AUTO) 3.9 % (0.0-3.0); HEMATOCRIT 36.5 % (42.0-52.0); HEMOGLOBIN 12.3 G/DL (14.2-18.0); LYMPHOCYTES % (AUTO) 10.8 % (20.0-45.0); MEAN CORPUSCULAR VOLUME 90 FL (80-99); MONOCYTES % (AUTO) 4.9 % (1.0-10.0); NEUTROPHILS % (AUTO) 79.6 % (45.0-75.0); PLATELET COUNT 163 K/UL (150-450); RED BLOOD COUNT 4.04 M/UL (4.70-6.10); RED CELL DISTRIBUTION WIDTH 11.7 % (11.6-14.8); WHITE BLOOD COUNT 12.7 K/UL (4.8-10.8)
[2019-03-03 08:00] VITALS: BP 142/78
[2019-03-03] MEDS: Metoprolol Tartrate 50mg tab ORAL SCH ×2 (08:51→21:00)
[2019-03-03] MEDS: Calcium Carbonate 500mg w/Vit D 200iu tab ORAL SCH (08:52)
[2019-03-03] MEDS: Docusate 100mg cap ORAL SCH (08:52)
[2019-03-03] MEDS: Heparin 5000 units/ml inj SUBQ SCH ×2 (08:56→21:28)
[2019-03-03] MEDS: Meropenem 1 GM in NS 55 ML IVPB SCH (11:09)
[2019-03-03 11:57] VITALS: BP 137/90
--- NOTE | 2019-03-03 12:23 | Surgery Progress Note ---
Surgery Progress Note Subjective Additional Comments Patient seen and examined at bedside. No acute events. Seemingly comfortable. Dressings intact. Leukocytosis significantly the improved with IV antibiotics. Overall improving. Cellulitis stable if not improving. Objective Last 24 Hour Vital Signs Date Time Temp Pulse Resp B/P (MAP) Pulse Ox O2 Delivery O2 Flow Rate FiO2 03/03/19 11:57 98.0 60 19 137/90 (106) 98 03/03/19 09:00 Room Air 03/03/19 08:52 61 142/78 03/03/19 08:51 61 142/78 03/03/19 08:00 44 03/03/19 08:00 97.8 61 16 142/78 (99) 95 03/03/19 04:00 46 03/03/19 04:00 98.2 56 19 126/73 (90) 96 03/03/19 00:00 98.0 51 18 124/74 (91) 97 03/03/19 00:00 46 03/02/19 22:55 52 141/97 (112) 03/02/19 21:30 63 153/84 03/02/19 21:28 63 153/84 (107) 03/02/19 21:00 Room Air 03/02/19 20:00 98.5 67 20 147/84 (105) 96 03/02/19 20:00 59 03/02/19 18:21 133/79 (97) 03/02/19 16:00 98.2 62 21 163/83 (109) 94 03/02/19 15:26 60 I&O Intake and Output 03/02/19 03/03/19 18:59 06:59 Intake Total 330.000 ml Balance 330.000 ml Intake IV Total 330.000 ml # Voids 4 2 # Bowel Movements 4 2 Dressing: saturated Wound: clean Cardiovascular: RSR Respiratory: clear Abdomen: soft, non-tender, present bowel sounds Extremities: edema, no tenderness, no cyanosis, other Laboratory Tests Test 03/03/19 05:05 03/03/19 06:45 Urine Color Yellow Urine Appearance Clear Urine pH 5 (4.5-8.0) Urine Specific [place] 1.020 (1.005-1.035) Urine Protein 1+ (NEGATIVE) H Urine Glucose (UA) Negative (NEGATIVE) Urine Ketones 1+ (NEGATIVE) H Urine Blood Negative (NEGATIVE) Urine Nitrite Negative (NEGATIVE) Urine Bilirubin Negative (NEGATIVE) Urine Urobilinogen Normal MG/DL (0.0-1.0) Urine Leukocyte Esterase 1+ (NEGATIVE) H Urine RBC 0-2 /HPF (0 - 0) H Urine WBC 2-4 /HPF (0 - 0) Urine Squamous Epithelial Cells Occasional /LPF Urine Bacteria Few /HPF (NONE) Urine Mucus Few /LPF (NONE/OCC) H White Blood Count 12.7 K/UL (4.8-10.8) #H Red Blood Count 4.04 M/UL (4.70-6.10) L Hemoglobin 12.3 G/DL (14.2-18.0) L Hematocrit 36.5 % (42.0-52.0) L Mean Corpuscular Volume 90 FL (80-99) Mean Corpuscular Hemoglobin 30.4 PG (27.0-31.0) Mean Corpuscular Hemoglobin Concent 33.6 G/DL (32.0-36.0) Red Cell Distribution Width 11.7 % (11.6-14.8) Platelet Count 163 K/UL (150-450) Mean Platelet Volume 7.3 FL (6.5-10.1) Neutrophils (%) (Auto) 79.6 % (45.0-75.0) H Lymphocytes (%) (Auto) 10.8 % (20.0-45.0) L Monocytes (%) (Auto) 4.9 % (1.0-10.0) Eosinophils (%) (Auto) 3.9 % (0.0-3.0) H Basophils (%) (Auto) 0.8 % (0.0-2.0) Sodium Level 140 MMOL/L (136-145) Potassium Level 4.1 MMOL/L (3.5-5.1) Chloride Level 109 MMOL/L (98-107) H Carbon Dioxide Level 26 MMOL/L (21-32) Anion Gap 6 mmol/L (5-15) Blood Urea Nitrogen 13 mg/dL (7-18) Creatinine 1.0 MG/DL (0.55-1.30) Estimat Glomerular Filtration Rate mL/min (>60) Glucose Level 90 MG/DL (74-106) Calcium Level 8.2 MG/DL (8.5-10.1) L Magnesium Level 2.3 MG/DL (1.8-2.4) Plan Problems: (1) Severe sepsis Assessment & Plan: 73M with leukocytosis, abnormal labs, lactic acidosis, and left arm cellulitis no abscess left arm wound superficial alfredito cute surgical intervention planned will follow with recs -wash wound daily, apply xerofoam and abx, then wrap daily -IV Abx -warm compress -AM labs UA, CXR, abx as per ID will follow with recs thank you (2) Left arm cellulitis Moody Siddiqi Mar 03, 2019 12:23
[2019-03-03] MEDS: Vancomycin 750mg/NS 275ml IVPB SCH ×2 (14:45)
[2019-03-03 16:00] VITALS: BP 123/56
[2019-03-03] MEDS ORDERED: NS 275ml ONE (16:09)
[2019-03-03] MEDS ORDERED: NS Irrig 1000ml ONE (16:09)
[2019-03-03] MEDS: Ampicillin/Sulbactam Sod 3 GM in NS 110 ML IVPB SCH ×2 (18:54→23:04)
--- NOTE | 2019-03-03 19:19 | NUR ---
HAND-OFF: Report given to DENA Blue. Patient's stable. Plan of care endorsed.
--- NOTE | 2019-03-03 19:35 | NUR ---
NURSE NOTES: Received patient from Kajal RN, patient in bed, asleep. On room air, no signs of respiratory distress. 22 gauge IV on right forearm intact, patent, no signs of infiltration. Bed in low position, locked, bed alarm on, call light within reach.
--- NOTE | 2019-03-03 19:59 | Cardiology Progress Note ---
Assessment/Plan Assessment/Plan 1. History of coronary artery disease, continue atorvastatin and aspirin. 2. History of hypertension, continue amlodipine, hydralazine and lisinopril. 3. Non-sustained ventricular tachycardia, Mg level 2.3, continue metoprolol. 4. History of hyperlipidemia, continue atorvastatin. Subjective Subjective Sinus rhythm at rate of 60. Objective Last 24 Hour Vital Signs Date Time Temp Pulse Resp B/P (MAP) Pulse Ox O2 Delivery O2 Flow Rate FiO2 03/03/19 16:00 98.3 60 20 123/56 (78) 98 03/03/19 16:00 44 03/03/19 12:00 48 03/03/19 11:57 98.0 60 19 137/90 (106) 98 03/03/19 09:00 Room Air 03/03/19 08:52 61 142/78 03/03/19 08:51 61 142/78 03/03/19 08:00 44 03/03/19 08:00 97.8 61 16 142/78 (99) 95 03/03/19 04:00 46 03/03/19 04:00 98.2 56 19 126/73 (90) 96 03/03/19 00:00 98.0 51 18 124/74 (91) 97 03/03/19 00:00 46 03/02/19 22:55 52 141/97 (112) 03/02/19 21:30 63 153/84 03/02/19 21:28 63 153/84 (107) 03/02/19 21:00 Room Air 03/02/19 20:00 98.5 67 20 147/84 (105) 96 03/02/19 20:00 59 Intake and Output 03/02/19 03/03/19 19:00 07:00 Intake Total 330.000 ml Balance 330.000 ml IV Total 330.000 ml # Voids 4 2 # Bowel Movements 4 2 2D Echo: LVEF 65%, Mild LVH, Grade I LVDD, RVSP 14 mmHg Laboratory Tests Test 03/03/19 05:05 03/03/19 06:45 Urine Color Yellow Urine Appearance Clear Urine pH 5 (4.5-8.0) Urine Specific [place] 1.020 (1.005-1.035) Urine Protein 1+ (NEGATIVE) H Urine Glucose (UA) Negative (NEGATIVE) Urine Ketones 1+ (NEGATIVE) H Urine Blood Negative (NEGATIVE) Urine Nitrite Negative (NEGATIVE) Urine Bilirubin Negative (NEGATIVE) Urine Urobilinogen Normal MG/DL (0.0-1.0) Urine Leukocyte Esterase 1+ (NEGATIVE) H Urine RBC 0-2 /HPF (0 - 0) H Urine WBC 2-4 /HPF (0 - 0) Urine Squamous Epithelial Cells Occasional /LPF Urine Bacteria Few /HPF (NONE) Urine Mucus Few /LPF (NONE/OCC) H White Blood Count 12.7 K/UL (4.8-10.8) #H Red Blood Count 4.04 M/UL (4.70-6.10) L Hemoglobin 12.3 G/DL (14.2-18.0) L Hematocrit 36.5 % (42.0-52.0) L Mean Corpuscular Volume 90 FL (80-99) Mean Corpuscular Hemoglobin 30.4 PG (27.0-31.0) Mean Corpuscular Hemoglobin Concent 33.6 G/DL (32.0-36.0) Red Cell Distribution Width 11.7 % (11.6-14.8) Platelet Count 163 K/UL (150-450) Mean Platelet Volume 7.3 FL (6.5-10.1) Neutrophils (%) (Auto) 79.6 % (45.0-75.0) H Lymphocytes (%) (Auto) 10.8 % (20.0-45.0) L Monocytes (%) (Auto) 4.9 % (1.0-10.0) Eosinophils (%) (Auto) 3.9 % (0.0-3.0) H Basophils (%) (Auto) 0.8 % (0.0-2.0) Sodium Level 140 MMOL/L (136-145) Potassium Level 4.1 MMOL/L (3.5-5.1) Chloride Level 109 MMOL/L (98-107) H Carbon Dioxide Level 26 MMOL/L (21-32) Anion Gap 6 mmol/L (5-15) Blood Urea Nitrogen 13 mg/dL (7-18) Creatinine 1.0 MG/DL (0.55-1.30) Estimat Glomerular Filtration Rate mL/min (>60) Glucose Level 90 MG/DL (74-106) Calcium Level 8.2 MG/DL (8.5-10.1) L Magnesium Level 2.3 MG/DL (1.8-2.4) Microbiology Date/Time Source Procedure Growth Status 03/01/19 13:15 Blood Blood Culture - Final Streptococcus Group A Complete 03/01/19 13:00 Blood Blood Culture - Preliminary Streptococcus Group A Resulted 03/02/19 14:15 Wound Gram Stain - Final Resulted 03/02/19 14:15 Wound Wound Culture - Preliminary NO GROWTH Resulted 03/01/19 15:10 Nasal Nares MRSA Culture - Final NO METHICILLIN RESISTANT STAPH AUREUS... Complete Objective HEENT: Atraumatic and normocephalic. Anicteric. Pupils are equal, round, and reactive to light and accommodation. Extraocular muscles intact. NECK: JVP less than 5 cm. No carotid bruit. Carotid upstroke is 2+ bilaterally. CARDIOVASCULAR: Normal S1, S2. Regular rate and rhythm. No murmurs, gallops, or rubs. PMI is at fourth intercostal space in the midclavicular line. LUNGS: Clear to auscultation bilaterally. ABDOMEN: Soft, nontender, and nondistended. No hepatosplenomegaly. Positive bowel sounds. EXTREMITIES: Left arm in the dressing. Otherwise, no edema, clubbing, or cyanosis in the lower extremity. Jim Bae MD Mar 03, 2019 19:59
[2019-03-03 20:00] VITALS: BP 142/77
--- NOTE | 2019-03-03 21:00 | NUR ---
NURSE NOTES: Held metoprolol 50mg for HR of 45.
--- NOTE | 2019-03-03 21:00 | NUR ---
NURSE NOTES: Dressing changed on left upper extremity. Cleansed with saline, applied bactroban and covered with xeroform and optifoam dressing.
[2019-03-03] MEDS: Tamsulosin 0.4mg cap ORAL SCH (21:24)
--- NOTE | 2019-03-03 22:11 | Infectious Diseases Prog Note ---
Assessment/Plan Problems: (1) Abscess of forearm, left Assessment & Plan: with purulence and cellulitis , continue wide spectrum antibiotics with unasyn , pending abscess fluids culture , continue topical bactroban. stop vancomycin and meropenem (2) Left arm cellulitis Assessment & Plan: continue antibiotics pending cultures , local wound care (3) Sepsis Assessment & Plan: due to strep Pyogenes group A , source most likely his left arm wound and abscess , will repeat blood culture to confirm clearance and obtain echo to rule out vegetations. will switch vancomycin to unasyn for now Subjective Constitutional: Reports: no symptoms HEENT: Reports: no symptoms Respiratory: Reports: no symptoms Breasts: Reports: no symptoms Cardiovascular: Reports: no symptoms Gastrointestinal/Abdominal: Reports: no symptoms Genitourinary: Reports: no symptoms Neurologic: Reports: no symptoms Psychiatric: Reports: anxiety Skin: Reports: ulcer, other - left forearm abscess Endocrine: Reports: no symptoms Hematologic: Reports: no symptoms Musculoskeletal: Reports: pain Allergies: Coded Allergies: No Known Allergies (Unverified , 03/01/19) Objective Vital Signs Last 24 Hour Vital Signs Date Time Temp Pulse Resp B/P (MAP) Pulse Ox O2 Delivery O2 Flow Rate FiO2 03/03/19 21:00 45 142/77 03/03/19 20:00 97.7 63 18 142/77 (98) 96 03/03/19 20:00 45 03/03/19 16:00 98.3 60 20 123/56 (78) 98 03/03/19 16:00 44 03/03/19 12:00 48 03/03/19 11:57 98.0 60 19 137/90 (106) 98 03/03/19 09:00 Room Air 03/03/19 08:52 61 142/78 03/03/19 08:51 61 142/78 03/03/19 08:00 44 03/03/19 08:00 97.8 61 16 142/78 (99) 95 03/03/19 04:00 46 03/03/19 04:00 98.2 56 19 126/73 (90) 96 03/03/19 00:00 98.0 51 18 124/74 (91) 97 03/03/19 00:00 46 03/02/19 22:55 52 141/97 (112) Height (Feet): 5 Height (Inches): 8.00 Weight (Pounds): 160 General Appearance: WD/WN, no acute distress, cachetic HEENT: normocephalic, atraumatic, anicteric, mucous membranes moist, PERRL, EOMI, pharynx normal, supple, no JVD Respiratory/Chest: chest wall non-tender, lungs clear, normal breath sounds, no respiratory distress, no accessory muscle use Cardiovascular: normal peripheral pulses, normal rate, regular rhythm, no gallop/murmur, no JVD Abdomen: normal bowel sounds, soft, non tender, no organomegaly, non distended , no mass, no scars Genitourinary: normal external genitalia Extremities: no cyanosis, no clubbing Skin: no rash, no lesions, ulcers, other - left forearm wound Lymphatic: no neck adenopathy, no groin adenopathy Musculoskeletal: normal muscle bulk, no effusion Microbiology Date/Time Source Procedure Growth Status 03/01/19 13:15 Blood Blood Culture - Final Streptococcus Group A Complete 03/01/19 13:00 Blood Blood Culture - Preliminary Streptococcus Group A Resulted 03/02/19 14:15 Wound Gram Stain - Final Resulted 03/02/19 14:15 Wound Wound Culture - Preliminary NO GROWTH Resulted 03/01/19 15:10 Nasal Nares MRSA Culture - Final NO METHICILLIN RESISTANT STAPH AUREUS... Complete Laboratory Tests Test 03/03/19 05:05 03/03/19 06:45 Urine Color Yellow Urine Appearance Clear Urine pH 5 (4.5-8.0) Urine Specific [place] 1.020 (1.005-1.035) Urine Protein 1+ (NEGATIVE) H Urine Glucose (UA) Negative (NEGATIVE) Urine Ketones 1+ (NEGATIVE) H Urine Blood Negative (NEGATIVE) Urine Nitrite Negative (NEGATIVE) Urine Bilirubin Negative (NEGATIVE) Urine Urobilinogen Normal MG/DL (0.0-1.0) Urine Leukocyte Esterase 1+ (NEGATIVE) H Urine RBC 0-2 /HPF (0 - 0) H Urine WBC 2-4 /HPF (0 - 0) Urine Squamous Epithelial Cells Occasional /LPF Urine Bacteria Few /HPF (NONE) Urine Mucus Few /LPF (NONE/OCC) H White Blood Count 12.7 K/UL (4.8-10.8) #H Red Blood Count 4.04 M/UL (4.70-6.10) L Hemoglobin 12.3 G/DL (14.2-18.0) L Hematocrit 36.5 % (42.0-52.0) L Mean Corpuscular Volume 90 FL (80-99) Mean Corpuscular Hemoglobin 30.4 PG (27.0-31.0) Mean Corpuscular Hemoglobin Concent 33.6 G/DL (32.0-36.0) Red Cell Distribution Width 11.7 % (11.6-14.8) Platelet Count 163 K/UL (150-450) Mean Platelet Volume 7.3 FL (6.5-10.1) Neutrophils (%) (Auto) 79.6 % (45.0-75.0) H Lymphocytes (%) (Auto) 10.8 % (20.0-45.0) L Monocytes (%) (Auto) 4.9 % (1.0-10.0) Eosinophils (%) (Auto) 3.9 % (0.0-3.0) H Basophils (%) (Auto) 0.8 % (0.0-2.0) Sodium Level 140 MMOL/L (136-145) Potassium Level 4.1 MMOL/L (3.5-5.1) Chloride Level 109 MMOL/L (98-107) H Carbon Dioxide Level 26 MMOL/L (21-32) Anion Gap 6 mmol/L (5-15) Blood Urea Nitrogen 13 mg/dL (7-18) Creatinine 1.0 MG/DL (0.55-1.30) Estimat Glomerular Filtration Rate mL/min (>60) Glucose Level 90 MG/DL (74-106) Calcium Level 8.2 MG/DL (8.5-10.1) L Magnesium Level 2.3 MG/DL (1.8-2.4) Current Medications Medications (Trade) Dose Ordered Sig/Jadon Route PRN Reason Start Time Stop Time Status Last Admin Dose Admin Acetaminophen (Tylenol) 650 mg Q6H PRN ORAL Mild Pain/Temp > 100.5 03/01/19 17:00 03/31/19 16:59 03/02/19 17:08 Amlodipine Besylate (Norvasc) 10 mg DAILY ORAL 03/03/19 09:00 04/02/19 08:59 03/03/19 08:52 Ampicillin Sodium/ Sulbactam Sodium 3 gm/Sodium Chloride 110 ml @ 220 mls/hr Q6HR IVPB 03/03/19 18:30 03/10/19 18:29 03/03/19 18:54 Atorvastatin Calcium (Lipitor) 10 mg BEDTIME ORAL 03/01/19 21:00 03/31/19 20:59 03/03/19 21:24 Calcium/Vitamin D (OsCal D) 1 tab DAILY ORAL 03/02/19 09:00 04/01/19 08:59 03/03/19 08:52 Docusate Sodium (Colace) 100 mg DAILY ORAL 03/02/19 09:00 04/01/19 08:59 03/03/19 08:52 Finasteride (Proscar) 5 mg DAILY ORAL 03/02/19 09:00 04/01/19 08:59 03/03/19 08:52 Heparin Sodium (Porcine) (Heparin 5000 units/ml) 5,000 units EVERY 12 HOURS SUBQ 03/01/19 21:00 03/31/19 20:59 03/03/19 21:28 Lactulose (Cephulac) 20 gm Q8H PRN ORAL Constipation 03/02/19 12:30 04/01/19 12:29 Metoprolol Tartrate (Lopressor) 50 mg Q12HR ORAL 03/02/19 21:30 04/01/19 21:29 03/03/19 08:51 Mirtazapine (Remeron) 7.5 mg BEDTIME PRN ORAL insomnia 03/02/19 23:00 04/01/19 22:59 Multivitamins (Multivitamins) 1 tab DAILY ORAL 03/02/19 09:00 04/01/19 08:59 03/03/19 08:52 Mupirocin (Bactroban Oint) 1 applic EVERY 12 HOURS TOPIC 03/02/19 21:00 03/07/19 20:59 03/03/19 21:24 Tamsulosin HCl (Flomax) 0.4 mg QHS ORAL 03/01/19 21:00 03/31/19 20:59 03/03/19 21:24 Arnie Higgins M.D. Mar 03, 2019 22:11
[2019-03-04] VITALS: BP 144/82
[2019-03-04 05:30] VITALS: BP 139/72
[2019-03-04] MEDS: Ampicillin/Sulbactam Sod 3 GM in NS 110 ML IVPB SCH ×3 (05:53→18:11)
[2019-03-04 08:00] VITALS: BP 147/90
--- NOTE | 2019-03-04 08:02 | NUR ---
NURSE NOTES: Received patient from DENA Blue. Patient is in bed and asleep. Patient is semi-lazcano's position. Patient was setup to eat breakfast. Patient is breathing even and unlabored on room air. 22 gauge IV on right forearm intact, patent, no signs of infiltration. Bed in low position, locked, bed alarm on, and call light within reach. Will continue plan of care.
--- NOTE | 2019-03-04 09:00 | NUR ---
NURSE NOTES: Dressing changed on left upper extremity. Cleansed with saline, applied bactroban and covered with xeroform and optifoam dressing.
[2019-03-04] MEDS: Docusate 100mg cap ORAL SCH (09:28)
[2019-03-04] MEDS: Calcium Carbonate 500mg w/Vit D 200iu tab ORAL SCH (09:29)
[2019-03-04] MEDS: Metoprolol Tartrate 50mg tab ORAL SCH ×2 (09:29→21:00)
[2019-03-04] MEDS: Heparin 5000 units/ml inj SUBQ SCH ×2 (09:31→22:26)
--- NOTE | 2019-03-04 11:24 | General Progress Note ---
Assessment/Plan Status: stable Assessment/Plan: S: I am doing ok O: not verbally communicative more than couple words. Seems comfortable PHYSICAL EXAMINATION: HEAD AND NECK: Atraumatic and normocephalic. CHEST: Clear to auscultation. HEART: S1, S2. Regular rate and rhythm. ABDOMEN: Soft. No organomegaly MUSCULOSKELETAL: No gross lateralized motor deficit. Positive for diffuse erythema and warmness on the left upper extremity. NEUROLOGY: The patient is awake, alert x1. LABORATORY DATA: Laboratory work dated March 04, 2019, reviwed ASSESSMENT: 1. Sepsis with Gram positive cocci 2. Left upper extremity cellulitis. 3. Hypertension. 4. BPH. 5. Psychiatric disorder. 6. GI and DVT prophylaxis. PLAN OF CARE: Sensitive to Vanco. will c/w IV abx. Favorable response with decreased in WBC Subjective Allergies: Coded Allergies: No Known Allergies (Unverified , 03/01/19) Objective Last 24 Hour Vital Signs Date Time Temp Pulse Resp B/P (MAP) Pulse Ox O2 Delivery O2 Flow Rate FiO2 03/04/19 09:29 68 147/90 03/04/19 09:29 68 147/90 03/04/19 08:00 97.6 68 20 147/90 (109) 95 03/04/19 07:54 46 03/04/19 05:30 64 139/72 (94) 03/04/19 04:00 98.0 18 97 03/04/19 04:00 48 03/04/19 00:00 97.6 58 18 144/82 (102) 97 03/04/19 00:00 46 03/03/19 21:00 Room Air 03/03/19 21:00 45 142/77 03/03/19 20:00 97.7 63 18 142/77 (98) 96 03/03/19 20:00 45 03/03/19 16:00 98.3 60 20 123/56 (78) 98 03/03/19 16:00 44 03/03/19 12:00 48 03/03/19 11:57 98.0 60 19 137/90 (106) 98 Intake and Output 03/03/19 03/04/19 19:00 07:00 Intake Total 230 ml Output Total 110 ml Balance 120 ml Intake Oral 230 ml Output Urine Total 110 ml # Voids 1 # Bowel Movements 2 1 Height (Feet): 5 Height (Inches): 8.00 Weight (Pounds): 160 Jm Bolton MD Mar 04, 2019 11:24
--- NOTE | 2019-03-04 11:27 | General Progress Note ---
Assessment/Plan Status: stable Assessment/Plan: S: not answering the question O: not verbally communicative more than couple words. Seems comfortable PHYSICAL EXAMINATION: HEAD AND NECK: Atraumatic and normocephalic. CHEST: Clear to auscultation. HEART: S1, S2. Regular rate and rhythm. ABDOMEN: Soft. No organomegalyMUSCULOSKELETAL: No gross lateralized motor deficit. Positive for diffuse erythema and warmness on the left upper extremity. NEUROLOGY: The patient is awake, alert x1. LABORATORY DATA: Laboratory work dated March 03, 2019, reviewed ASSESSMENT: 1. Sepsis with Gram positive cocci 2. Left upper extremity cellulitis. 3. Hypertension. 4. BPH. 5. Psychiatric disorder. 6. GI and DVT prophylaxis. PLAN OF CARE: Postive initial Blood culute, will c/w IV abx. Favorable response to empiricall abx, with decreased in WBC Comment: Patient had been seen and examined On 03/03/19. Secondary to malfunction in EMR, note could not be entered. Time of this note does not reflect actual time of encounter Subjective Allergies: Coded Allergies: No Known Allergies (Unverified , 03/01/19) Objective Last 24 Hour Vital Signs Date Time Temp Pulse Resp B/P (MAP) Pulse Ox O2 Delivery O2 Flow Rate FiO2 03/04/19 09:29 68 147/90 03/04/19 09:29 68 147/90 03/04/19 08:00 97.6 68 20 147/90 (109) 95 03/04/19 07:54 46 03/04/19 05:30 64 139/72 (94) 03/04/19 04:00 98.0 18 97 03/04/19 04:00 48 03/04/19 00:00 97.6 58 18 144/82 (102) 97 03/04/19 00:00 46 03/03/19 21:00 Room Air 03/03/19 21:00 45 142/77 03/03/19 20:00 97.7 63 18 142/77 (98) 96 03/03/19 20:00 45 03/03/19 16:00 98.3 60 20 123/56 (78) 98 03/03/19 16:00 44 03/03/19 12:00 48 03/03/19 11:57 98.0 60 19 137/90 (106) 98 Intake and Output 03/03/19 03/04/19 19:00 07:00 Intake Total 230 ml Output Total 110 ml Balance 120 ml Intake Oral 230 ml Output Urine Total 110 ml # Voids 1 # Bowel Movements 2 1 Height (Feet): 5 Height (Inches): 8.00 Weight (Pounds): 160 Jm Bolton MD Mar 04, 2019 11:27
[2019-03-04 12:00] VITALS: BP 160/107
--- NOTE | 2019-03-04 15:10 | Cardiology Report ---
APPROVED REPORT EXAM: Two-dimensional and M-mode echocardiogram with Doppler and color Doppler. INDICATION Endocarditis M-Mode DIMENSIONS IVSd1.4 (0.7-1.1cm)Left Atrium (MM)4.0 (1.6-4.0cm) LVDd4.0 (3.5-5.6cm)Aortic Root3.2 (2.0-3.7cm) PWd1.3 (0.7-1.1cm)Aortic Cusp Exc.1.8 (1.5-2.0cm) LVDs2.2 (2.5-4.0cm) PWs1.6 cm Normal left ventricular chamber size, systolic function and wall motion. Left ventricular ejection fraction estimated to be 65 %. Mild left ventricular hypertrophy. No evidence of pericardial effusion. Mild left atrial enlargement by 2D. Right cardiac chamber sizes are within normal limits. Focal aortic valve sclerosis with adequate cusp excursion. Thickened mitral valve leaflets with normal excursion. Mitral annulus and aortic root calcification. Pulmonic valve not well visualized. Normal tricuspid valve structure. IVC is normal in size with physiological collapse. A color flow and spectral Doppler study was performed and revealed: No aortic regurgitation. Trace mitral regurgitation. Mitral diastolic velocities suggest normal left ventricular diastolic function. Trace tricuspid regurgitation. Tricuspid systolic velocities suggests peak right ventricular systolic pressure of 14 mmHg. No pulmonic regurgitation present.
--- NOTE | 2019-03-04 15:25 | Cardiology Report ---
APPROVED REPORT EKG Measurement Heart [id number] Normal sinus rhythm Abnormal ECG
--- NOTE | 2019-03-04 15:34 | Surgery Progress Note ---
Surgery Progress Note Subjective Additional Comments Patient seen and examined bedside. No acute events. Comfortable. Resting no complaints. Objective Last 24 Hour Vital Signs Date Time Temp Pulse Resp B/P (MAP) Pulse Ox O2 Delivery O2 Flow Rate FiO2 03/04/19 09:29 68 147/90 03/04/19 09:29 68 147/90 03/04/19 09:00 Room Air 03/04/19 08:00 97.6 68 20 147/90 (109) 95 03/04/19 07:54 46 03/04/19 05:30 64 139/72 (94) 03/04/19 04:00 98.0 18 97 03/04/19 04:00 48 03/04/19 00:00 97.6 58 18 144/82 (102) 97 03/04/19 00:00 46 03/03/19 21:00 Room Air 03/03/19 21:00 45 142/77 03/03/19 20:00 97.7 63 18 142/77 (98) 96 03/03/19 20:00 45 03/03/19 16:00 98.3 60 20 123/56 (78) 98 03/03/19 16:00 44 I&O Intake and Output 03/03/19 03/04/19 19:00 07:00 Intake Total 230 ml Output Total 110 ml Balance 120 ml Intake Oral 230 ml Output Urine Total 110 ml # Voids 1 # Bowel Movements 2 1 Dressing: saturated Wound: clean Cardiovascular: RSR Respiratory: clear Abdomen: soft, flat, non-tender, present bowel sounds Extremities: edema, no tenderness, no cyanosis, other Laboratory Tests Test 03/04/19 13:15 Vancomycin Level Trough 6.8 ug/mL (5.0-12.0) Plan Problems: (1) Severe sepsis Assessment & Plan: 73M with leukocytosis, abnormal labs, lactic acidosis, and left arm cellulitis no abscess left arm wound superficial alfredito cute surgical intervention planned will follow with recs -wash wound daily, apply xerofoam and abx, then wrap daily -IV Abx -warm compress -AM labs abx as per ID will follow with recs thank you (2) Left arm cellulitis Moody Siddiqi Mar 04, 2019 15:34
[2019-03-04] MEDS ORDERED: NS 275ml ONE (15:52)
[2019-03-04 16:00] VITALS: BP 161/95
--- NOTE | 2019-03-04 17:14 | NUR ---
NURSE NOTES: Paged Dr. Bae about patent's systolic blood pressure 160s. Awaiting call back for orders.
--- NOTE | 2019-03-04 17:45 | NUR ---
NURSE NOTES: Endorsed by charge nurse Arnav that Dr. Bae called back. Blood pressure medication order was entered.
--- NOTE | 2019-03-04 19:15 | NUR ---
HAND-OFF: Report given to DENA Cruz. Endorsed about blood pressure in the 160 and to follow up with repeat blood pressure.
--- NOTE | 2019-03-04 19:20 | NUR ---
NURSE NOTES: Pt alert to name, resting but responsive to name. Denies pain, no s/s of distress or SOB. Bed low, locked, call light within reach, side rails x 2, safety precaution is applied. L upper arm cellulitis present, dressing intact. IV is patent and asymptomatic. HR is 46. Will continue to monitor
--- NOTE | 2019-03-04 19:30 | Infectious Diseases Prog Note ---
Assessment/Plan Problems: (1) Abscess of forearm, left Assessment & Plan: with purulence and cellulitis , due to streptococcus pyogenes group A , continue antibiotics with unasyn , stop topical bactroban. (2) Left arm cellulitis Assessment & Plan: continue antibiotics with local wound care (3) Sepsis Assessment & Plan: due to strep Pyogenes group A , source most likely his left arm wound and abscess , await repeated blood culture to confirm clearance and obtain echo to rule out vegetations. continue unasyn for now Subjective Constitutional: Reports: no symptoms HEENT: Reports: no symptoms Respiratory: Reports: no symptoms Breasts: Reports: no symptoms Cardiovascular: Reports: no symptoms Gastrointestinal/Abdominal: Reports: no symptoms Genitourinary: Reports: no symptoms Neurologic: Reports: no symptoms Psychiatric: Reports: no symptoms Skin: Reports: ulcer Endocrine: Reports: no symptoms Hematologic: Reports: no symptoms Musculoskeletal: Reports: no symptoms Allergies: Coded Allergies: No Known Allergies (Unverified , 03/01/19) Objective Vital Signs Last 24 Hour Vital Signs Date Time Temp Pulse Resp B/P (MAP) Pulse Ox O2 Delivery O2 Flow Rate FiO2 03/04/19 18:11 161/95 03/04/19 16:00 97.2 68 20 161/95 (117) 96 03/04/19 15:37 55 03/04/19 12:00 98.3 64 20 160/107 (124) 95 03/04/19 11:45 49 03/04/19 09:29 68 147/90 03/04/19 09:29 68 147/90 03/04/19 09:00 Room Air 03/04/19 08:00 97.6 68 20 147/90 (109) 95 03/04/19 07:54 46 03/04/19 05:30 64 139/72 (94) 03/04/19 04:00 98.0 18 97 03/04/19 04:00 48 03/04/19 00:00 97.6 58 18 144/82 (102) 97 03/04/19 00:00 46 03/03/19 21:00 Room Air 03/03/19 21:00 45 142/77 03/03/19 20:00 97.7 63 18 142/77 (98) 96 03/03/19 20:00 45 Height (Feet): 5 Height (Inches): 8.00 Weight (Pounds): 160 General Appearance: WD/WN, no acute distress HEENT: normocephalic, atraumatic, anicteric, mucous membranes moist, PERRL, supple, no JVD Respiratory/Chest: chest wall non-tender, lungs clear, normal breath sounds, no respiratory distress, no accessory muscle use Cardiovascular: normal peripheral pulses, normal rate, regular rhythm, no gallop/murmur, no JVD Abdomen: normal bowel sounds, soft, non tender, no organomegaly, non distended , no mass, no scars Genitourinary: normal external genitalia Extremities: no cyanosis, no clubbing Skin: no rash, no lesions, ulcers 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, alert, responsive Lymphatic: no neck adenopathy, no groin adenopathy Microbiology Date/Time Source Procedure Growth Status 03/02/19 14:15 Wound Gram Stain - Final Resulted 03/02/19 14:15 Wound Culture - Preliminary Streptococcus Pyogenes Grp A Resulted Laboratory Tests Test 03/04/19 13:15 Vancomycin Level Trough 6.8 ug/mL (5.0-12.0) Current Medications Medications (Trade) Dose Ordered Sig/Jadon Route PRN Reason Start Time Stop Time Status Last Admin Dose Admin Acetaminophen (Tylenol) 650 mg Q6H PRN ORAL Mild Pain/Temp > 100.5 03/01/19 17:00 03/31/19 16:59 03/02/19 17:08 Amlodipine Besylate (Norvasc) 10 mg DAILY ORAL 03/03/19 09:00 04/02/19 08:59 03/04/19 09:29 Ampicillin Sodium/ Sulbactam Sodium 3 gm/Sodium Chloride 110 ml @ 220 mls/hr Q6HR IVPB 03/03/19 18:30 03/10/19 18:29 03/04/19 18:11 Atorvastatin Calcium (Lipitor) 10 mg BEDTIME ORAL 03/01/19 21:00 03/31/19 20:59 03/03/19 21:24 Calcium/Vitamin D (OsCal D) 1 tab DAILY ORAL 03/02/19 09:00 04/01/19 08:59 03/04/19 09:29 Clonidine HCl (Catapres Tab) 0.1 mg Q8H PRN ORAL SBP > 160mmHg 03/04/19 17:30 04/03/19 17:29 03/04/19 18:11 Docusate Sodium (Colace) 100 mg DAILY ORAL 03/02/19 09:00 04/01/19 08:59 03/04/19 09:28 Finasteride (Proscar) 5 mg DAILY ORAL 03/02/19 09:00 04/01/19 08:59 03/04/19 09:29 Heparin Sodium (Porcine) (Heparin 5000 units/ml) 5,000 units EVERY 12 HOURS SUBQ 03/01/19 21:00 03/31/19 20:59 03/04/19 09:31 Lactulose (Cephulac) 20 gm Q8H PRN ORAL Constipation 03/02/19 12:30 04/01/19 12:29 Metoprolol Tartrate (Lopressor) 50 mg Q12HR ORAL 03/02/19 21:30 04/01/19 21:29 03/04/19 09:29 Mirtazapine (Remeron) 7.5 mg BEDTIME PRN ORAL insomnia 03/02/19 23:00 04/01/19 22:59 Multivitamins (Multivitamins) 1 tab DAILY ORAL 03/02/19 09:00 04/01/19 08:59 03/04/19 09:29 Mupirocin (Bactroban Oint) 1 applic EVERY 12 HOURS TOPIC 03/02/19 21:00 03/07/19 20:59 03/04/19 09:39 Tamsulosin HCl (Flomax) 0.4 mg QHS ORAL 03/01/19 21:00 03/31/19 20:59 03/03/19 21:24 Arnie Higgins M.D. Mar 04, 2019 19:30
[2019-03-04 20:00] VITALS: BP 109/69
[2019-03-04] MEDS: Tamsulosin 0.4mg cap ORAL SCH (22:25)
--- NOTE | 2019-03-04 22:35 | Cardiology Progress Note ---
Assessment/Plan Assessment/Plan 1. History of coronary artery disease, continue atorvastatin and aspirin. 2. History of hypertension, continue amlodipine, hydralazine and lisinopril. 3. Non-sustained ventricular tachycardia, Mg level 2.3, continue metoprolol. 4. History of hyperlipidemia, continue atorvastatin. Subjective Subjective Sinus bradycardia at rate of 48. Objective Last 24 Hour Vital Signs Date Time Temp Pulse Resp B/P (MAP) Pulse Ox O2 Delivery O2 Flow Rate FiO2 03/04/19 21:00 48 109/69 03/04/19 20:00 97.6 48 19 109/69 (82) 97 03/04/19 18:11 161/95 03/04/19 16:00 97.2 68 20 161/95 (117) 96 03/04/19 15:37 55 03/04/19 12:00 98.3 64 20 160/107 (124) 95 03/04/19 11:45 49 03/04/19 09:29 68 147/90 03/04/19 09:29 68 147/90 03/04/19 09:00 Room Air 03/04/19 08:00 97.6 68 20 147/90 (109) 95 03/04/19 07:54 46 03/04/19 05:30 64 139/72 (94) 03/04/19 04:00 98.0 18 97 03/04/19 04:00 48 03/04/19 00:00 97.6 58 18 144/82 (102) 97 03/04/19 00:00 46 Intake and Output 03/03/19 03/04/19 18:59 06:59 Intake Total 230 ml Output Total 110 ml Balance 120 ml Intake Oral 230 ml Output Urine Total 110 ml # Voids 1 # Bowel Movements 2 1 2D Echo: LVEF 65%, Mild LVH, Grade I LVDD, RVSP 14 mmHg Laboratory Tests Test 03/04/19 13:15 Vancomycin Level Trough 6.8 ug/mL (5.0-12.0) Microbiology Date/Time Source Procedure Growth Status 03/02/19 14:15 Wound Gram Stain - Final Resulted 03/02/19 14:15 Wound Culture - Preliminary Streptococcus Pyogenes Grp A Resulted Objective HEENT: Atraumatic and normocephalic. Anicteric. Pupils are equal, round, and reactive to light and accommodation. Extraocular muscles intact. NECK: JVP less than 5 cm. No carotid bruit. Carotid upstroke is 2+ bilaterally. CARDIOVASCULAR: Normal S1, S2. Regular rate and rhythm. No murmurs, gallops, or rubs. PMI is at fourth intercostal space in the midclavicular line. LUNGS: Clear to auscultation bilaterally. ABDOMEN: Soft, nontender, and nondistended. No hepatosplenomegaly. Positive bowel sounds. EXTREMITIES: Left arm in the dressing. Otherwise, no edema, clubbing, or cyanosis in the lower extremity. Jim Bae MD Mar 04, 2019 22:35
[2019-03-05] VITALS: BP 111/71
[2019-03-05 04:00] VITALS: BP 115/69
[2019-03-05] MEDS: Ampicillin/Sulbactam Sod 3 GM in NS 110 ML IVPB SCH ×4 (06:32→12:10)
--- NOTE | 2019-03-05 07:07 | NUR ---
HAND-OFF: Report given to DENA Wallace.
--- NOTE | 2019-03-05 07:20 | NUR ---
NURSE NOTES: Received patient from DENA Cruz. Patient is in bed and asleep. Patient is semi-lazcano's position. Patient is breathing even and unlabored on room air. 22 gauge IV on right forearm intact, patent, no signs of infiltration. Bed in low position, locked, bed alarm on, and call light within reach. Will continue plan of care.
[2019-03-05 07:50] LABS: BASOPHILS % (AUTO) 0.7 % (0.0-2.0); EOSINOPHILS % (AUTO) 5.2 % (0.0-3.0); HEMATOCRIT 39.4 % (42.0-52.0); HEMOGLOBIN 13.6 G/DL (14.2-18.0); LYMPHOCYTES % (AUTO) 15.8 % (20.0-45.0); MEAN CORPUSCULAR VOLUME 89 FL (80-99); MONOCYTES % (AUTO) 7.6 % (1.0-10.0); NEUTROPHILS % (AUTO) 70.7 % (45.0-75.0); PLATELET COUNT 194 K/UL (150-450); RED BLOOD COUNT 4.43 M/UL (4.70-6.10); RED CELL DISTRIBUTION WIDTH 11.3 % (11.6-14.8); WHITE BLOOD COUNT 8.8 K/UL (4.8-10.8)
[2019-03-05 07:51] LABS: ANION GAP 7 mmol/L (5-15); BLOOD UREA NITROGEN 12 mg/dL (7-18); CALCIUM 8.7 MG/DL (8.5-10.1); CARBON DIOXIDE 27 MMOL/L (21-32); CHLORIDE 106 MMOL/L (98-107); POTASSIUM 3.7 MMOL/L (3.5-5.1); SODIUM 140 MMOL/L (136-145)
[2019-03-05 08:00] VITALS: BP 145/82
--- NOTE | 2019-03-05 08:18 | NUR ---
CASE MANAGEMENT: REVIEW 03/05/19 SI: SEPSIS; LEFT UPPER EXTREMITY CELLULITIS PMH: CAD; HTN 98.0 58 18 115/69 96% RA RBC 4.43; H/H 13.6/ 39.4 IS: HEPARIN SQ Q12 IV VANCOMYCIN IV AMPICILLIN Q6H CLONIDINE PO Q8H NORVASC PO QD LOPRESSOR PO Q12 VASOTEC PO QD PROSCAR PO QD LACTULOSE PO Q8 : TO 2E TELE UNIT PLAN: REPEAT BLOOD CX OBTAIN ECHO Addendum: 03/05/19 at 0931 by JH SAM LVN CASE MANAGEMENT: REVIEW 03/05/19 SI: SEPSIS; LUE CELLULITIS; BACTEREMIA NSVT AND BRADYCARDIA 98.0 58 18 115/69 96% RA RBC 4.43; H/H 13.6/ 39.4 IS: HEPARIN SQ Q12 IV AMPICILLIN Q6H CLONIDINE PO Q8H NORVASC PO QD LOPRESSOR PO Q12 VASOTEC PO QD PROSCAR PO QD LACTULOSE PO Q8 : TO 2E TELE UNIT DCP: RETURN TO [facility]
--- NOTE | 2019-03-05 08:22 | General Progress Note ---
Assessment/Plan Status: stable Assessment/Plan: S: not answering the question O: not verbally communicative more than couple words. Seems comfortable PHYSICAL EXAMINATION: HEAD AND NECK: Atraumatic and normocephalic. CHEST: Clear to auscultation. HEART: S1, S2. Regular rate and rhythm. ABDOMEN: Soft. No organomegalyMUSCULOSKELETAL: No gross lateralized motor deficit. Positive for diffuse erythema and warmness on the left upper extremity. NEUROLOGY: The patient is awake, alert x1. LABORATORY DATA: Laboratory work dated March 05, 2019, reviewed meds: including Vanco ASSESSMENT: 1. Sepsis with Gram positive cocci 2. Left upper extremity cellulitis. 3. Hypertension. 4. BPH. 5. Psychiatric disorder. 6. GI and DVT prophylaxis. PLAN OF CARE: Interval decrease of WBC follow ID rec, once cleared may FU in SNIF Subjective Allergies: Coded Allergies: No Known Allergies (Unverified , 03/01/19) Objective Last 24 Hour Vital Signs Date Time Temp Pulse Resp B/P (MAP) Pulse Ox O2 Delivery O2 Flow Rate FiO2 03/05/19 08:00 98.0 58 18 96 03/05/19 04:00 97.6 72 18 115/69 (84) 97 03/05/19 04:00 46 03/05/19 00:00 97.9 66 19 111/71 (84) 96 03/05/19 00:00 51 03/04/19 21:00 Room Air 03/04/19 21:00 48 109/69 03/04/19 20:00 61 03/04/19 20:00 97.6 48 19 109/69 (82) 97 03/04/19 18:11 161/95 03/04/19 16:00 97.2 68 20 161/95 (117) 96 03/04/19 15:37 55 03/04/19 12:00 98.3 64 20 160/107 (124) 95 03/04/19 11:45 49 03/04/19 09:29 68 147/90 03/04/19 09:29 68 147/90 03/04/19 09:00 Room Air Intake and Output 03/04/19 03/05/19 19:00 07:00 Intake Total 370 ml 110 ml Balance 370 ml 110 ml Intake Oral 370 ml IV Total 110 ml # Voids 3 2 # Bowel Movements 2 3 Laboratory Tests 03/04/19 13:15: Vancomycin Level Trough 6.8 03/05/19 06:04: White Blood Count 8.8, Red Blood Count 4.43L, Hemoglobin 13.6L, Hematocrit 39.4L , Mean Corpuscular Volume 89, Mean Corpuscular Hemoglobin 30.8, Mean Corpuscular Hemoglobin Concent 34.6, Red Cell Distribution Width 11.3L, Platelet Count 194, Mean Platelet Volume 7.5, Neutrophils (%) (Auto) 70.7, Lymphocytes (%) (Auto) 15.8L, Monocytes (%) (Auto) 7.6, Eosinophils (%) (Auto) 5.2H, Basophils (%) (Auto) 0.7, Sodium Level 140, Potassium Level 3.7, Chloride Level 106, Carbon Dioxide Level 27, Anion Gap 7, Blood Urea Nitrogen 12, Creatinine 1.0, Estimat Glomerular Filtration Rate , Glucose Level 69L, Calcium Level 8.7 Height (Feet): 5 Height (Inches): 8.00 Weight (Pounds): 160 Jm Bolton MD Mar 05, 2019 08:22
[2019-03-05] MEDS: Calcium Carbonate 500mg w/Vit D 200iu tab ORAL SCH (08:57)
[2019-03-05] MEDS ORDERED: Enalapril 5mg tab ORAL SCH (09:00)
[2019-03-05] MEDS: Docusate 100mg cap ORAL SCH (09:00)
[2019-03-05] MEDS: Metoprolol Tartrate 50mg tab ORAL SCH ×2 (09:00→21:00)
[2019-03-05] MEDS: Heparin 5000 units/ml inj SUBQ SCH ×2 (09:01→22:06)
[2019-03-05 12:00] VITALS: BP 168/91
--- NOTE | 2019-03-05 15:34 | Infectious Diseases Prog Note ---
Assessment/Plan Problems: (1) Abscess of forearm, left Assessment & Plan: with purulence and cellulitis , due to streptococcus pyogenes group A , continue antibiotics with Unasyn , stop topical Bactroban. (2) Left arm cellulitis Assessment & Plan: continue antibiotics with local wound care (3) Sepsis Assessment & Plan: due to strep Pyogenes group A , source most likely his left arm wound and abscess , await repeated blood culture to confirm clearance and obtain echo to rule out vegetations. continue unasyn for now Subjective Constitutional: Reports: no symptoms HEENT: Reports: no symptoms Respiratory: Reports: no symptoms Breasts: Reports: no symptoms Cardiovascular: Reports: no symptoms Gastrointestinal/Abdominal: Reports: no symptoms Genitourinary: Reports: no symptoms Neurologic: Reports: no symptoms Psychiatric: Reports: no symptoms Skin: Reports: no symptoms Endocrine: Reports: no symptoms Hematologic: Reports: no symptoms Musculoskeletal: Reports: no symptoms Allergies: Coded Allergies: No Known Allergies (Unverified , 03/01/19) Objective Vital Signs Last 24 Hour Vital Signs Date Time Temp Pulse Resp B/P (MAP) Pulse Ox O2 Delivery O2 Flow Rate FiO2 03/05/19 12:50 168/91 03/05/19 12:00 98.0 54 18 168/91 (116) 96 03/05/19 11:41 53 03/05/19 09:00 129/66 03/05/19 09:00 58 129/66 03/05/19 09:00 58 129/66 03/05/19 09:00 Room Air 03/05/19 08:00 98.0 58 18 145/82 (103) 96 03/05/19 07:35 45 03/05/19 04:00 97.6 72 18 115/69 (84) 97 03/05/19 04:00 46 03/05/19 00:00 97.9 66 19 111/71 (84) 96 03/05/19 00:00 51 03/04/19 21:00 Room Air 03/04/19 21:00 48 109/69 03/04/19 20:00 61 03/04/19 20:00 97.6 48 19 109/69 (82) 97 03/04/19 18:11 161/95 03/04/19 16:00 97.2 68 20 161/95 (117) 96 03/04/19 15:37 55 Height (Feet): 5 Height (Inches): 8.00 Weight (Pounds): 160 General Appearance: WD/WN, no acute distress HEENT: normocephalic, atraumatic, anicteric, mucous membranes moist, PERRL Respiratory/Chest: chest wall non-tender, lungs clear, normal breath sounds, no respiratory distress, no accessory muscle use Cardiovascular: normal peripheral pulses, normal rate, regular rhythm, no gallop/murmur, no JVD Abdomen: normal bowel sounds, soft, non tender, no organomegaly, non distended , no mass, no scars Extremities: no cyanosis, no clubbing Skin: no rash, no lesions, no ulcers Neurologic/Psychiatric: alert, responsive Lymphatic: no neck adenopathy, no groin adenopathy Musculoskeletal: normal muscle bulk, no effusion Laboratory Tests Test 03/05/19 06:04 White Blood Count 8.8 K/UL (4.8-10.8) Red Blood Count 4.43 M/UL (4.70-6.10) L Hemoglobin 13.6 G/DL (14.2-18.0) L Hematocrit 39.4 % (42.0-52.0) L Mean Corpuscular Volume 89 FL (80-99) Mean Corpuscular Hemoglobin 30.8 PG (27.0-31.0) Mean Corpuscular Hemoglobin Concent 34.6 G/DL (32.0-36.0) Red Cell Distribution Width 11.3 % (11.6-14.8) L Platelet Count 194 K/UL (150-450) Mean Platelet Volume 7.5 FL (6.5-10.1) Neutrophils (%) (Auto) 70.7 % (45.0-75.0) Lymphocytes (%) (Auto) 15.8 % (20.0-45.0) L Monocytes (%) (Auto) 7.6 % (1.0-10.0) Eosinophils (%) (Auto) 5.2 % (0.0-3.0) H Basophils (%) (Auto) 0.7 % (0.0-2.0) Sodium Level 140 MMOL/L (136-145) Potassium Level 3.7 MMOL/L (3.5-5.1) Chloride Level 106 MMOL/L (98-107) Carbon Dioxide Level 27 MMOL/L (21-32) Anion Gap 7 mmol/L (5-15) Blood Urea Nitrogen 12 mg/dL (7-18) Creatinine 1.0 MG/DL (0.55-1.30) Estimat Glomerular Filtration Rate mL/min (>60) Glucose Level 69 MG/DL (74-106) L Calcium Level 8.7 MG/DL (8.5-10.1) Current Medications Medications (Trade) Dose Ordered Sig/Jadon Route PRN Reason Start Time Stop Time Status Last Admin Dose Admin Acetaminophen (Tylenol) 650 mg Q6H PRN ORAL Mild Pain/Temp > 100.5 03/01/19 17:00 03/31/19 16:59 03/02/19 17:08 Amlodipine Besylate (Norvasc) 10 mg DAILY ORAL 03/03/19 09:00 04/02/19 08:59 03/05/19 09:00 Ampicillin Sodium/ Sulbactam Sodium 3 gm/Sodium Chloride 110 ml @ 220 mls/hr Q6HR IVPB 03/03/19 18:30 03/10/19 18:29 03/05/19 12:10 Atorvastatin Calcium (Lipitor) 10 mg BEDTIME ORAL 03/01/19 21:00 03/31/19 20:59 03/04/19 22:25 Calcium/Vitamin D (OsCal D) 1 tab DAILY ORAL 03/02/19 09:00 04/01/19 08:59 03/05/19 08:57 Clonidine HCl (Catapres Tab) 0.1 mg Q8H PRN ORAL SBP > 160mmHg 03/04/19 17:30 04/03/19 17:29 03/05/19 12:50 Docusate Sodium (Colace) 100 mg DAILY ORAL 03/02/19 09:00 04/01/19 08:59 03/04/19 09:28 Enalapril Maleate (Vasotec) 5 mg DAILY ORAL 03/05/19 09:00 04/04/19 08:59 03/05/19 09:00 Finasteride (Proscar) 5 mg DAILY ORAL 03/02/19 09:00 04/01/19 08:59 03/05/19 08:57 Heparin Sodium (Porcine) (Heparin 5000 units/ml) 5,000 units EVERY 12 HOURS SUBQ 03/01/19 21:00 03/31/19 20:59 03/05/19 09:01 Lactulose (Cephulac) 20 gm Q8H PRN ORAL Constipation 03/02/19 12:30 04/01/19 12:29 Metoprolol Tartrate (Lopressor) 50 mg Q12HR ORAL 03/02/19 21:30 04/01/19 21:29 03/04/19 09:29 Mirtazapine (Remeron) 7.5 mg BEDTIME PRN ORAL insomnia 03/02/19 23:00 04/01/19 22:59 Multivitamins (Multivitamins) 1 tab DAILY ORAL 03/02/19 09:00 04/01/19 08:59 03/05/19 08:57 Tamsulosin HCl (Flomax) 0.4 mg QHS ORAL 03/01/19 21:00 03/31/19 20:59 03/04/19 22:25 Arnie Higgins M.D. Mar 05, 2019 15:34
--- NOTE | 2019-03-05 15:51 | Surgery Progress Note ---
Surgery Progress Note Subjective Additional Comments Patient seen and examined bedside. No acute events. Not very talkative today. No nausea vomiting fever chills. Leukocytosis resolved. Labs improved. Edema of left upper extremity improved and cellulitis improved overall improving Objective Last 24 Hour Vital Signs Date Time Temp Pulse Resp B/P (MAP) Pulse Ox O2 Delivery O2 Flow Rate FiO2 03/05/19 12:50 168/91 03/05/19 12:00 98.0 54 18 168/91 (116) 96 03/05/19 11:41 53 03/05/19 09:00 129/66 03/05/19 09:00 58 129/66 03/05/19 09:00 58 129/66 03/05/19 09:00 Room Air 03/05/19 08:00 98.0 58 18 145/82 (103) 96 03/05/19 07:35 45 03/05/19 04:00 97.6 72 18 115/69 (84) 97 03/05/19 04:00 46 03/05/19 00:00 97.9 66 19 111/71 (84) 96 03/05/19 00:00 51 03/04/19 21:00 Room Air 03/04/19 21:00 48 109/69 03/04/19 20:00 61 03/04/19 20:00 97.6 48 19 109/69 (82) 97 03/04/19 18:11 161/95 03/04/19 16:00 97.2 68 20 161/95 (117) 96 I&O Intake and Output 03/04/19 03/05/19 19:00 07:00 Intake Total 370 ml 110 ml Balance 370 ml 110 ml Intake Oral 370 ml IV Total 110 ml # Voids 3 2 # Bowel Movements 2 3 Dressing: dry Wound: clean Cardiovascular: RSR Respiratory: clear Abdomen: soft, flat, non-tender, present bowel sounds, non-distended Extremities: no edema, no tenderness, no cyanosis Laboratory Tests Test 03/05/19 06:04 White Blood Count 8.8 K/UL (4.8-10.8) Red Blood Count 4.43 M/UL (4.70-6.10) L Hemoglobin 13.6 G/DL (14.2-18.0) L Hematocrit 39.4 % (42.0-52.0) L Mean Corpuscular Volume 89 FL (80-99) Mean Corpuscular Hemoglobin 30.8 PG (27.0-31.0) Mean Corpuscular Hemoglobin Concent 34.6 G/DL (32.0-36.0) Red Cell Distribution Width 11.3 % (11.6-14.8) L Platelet Count 194 K/UL (150-450) Mean Platelet Volume 7.5 FL (6.5-10.1) Neutrophils (%) (Auto) 70.7 % (45.0-75.0) Lymphocytes (%) (Auto) 15.8 % (20.0-45.0) L Monocytes (%) (Auto) 7.6 % (1.0-10.0) Eosinophils (%) (Auto) 5.2 % (0.0-3.0) H Basophils (%) (Auto) 0.7 % (0.0-2.0) Sodium Level 140 MMOL/L (136-145) Potassium Level 3.7 MMOL/L (3.5-5.1) Chloride Level 106 MMOL/L (98-107) Carbon Dioxide Level 27 MMOL/L (21-32) Anion Gap 7 mmol/L (5-15) Blood Urea Nitrogen 12 mg/dL (7-18) Creatinine 1.0 MG/DL (0.55-1.30) Estimat Glomerular Filtration Rate mL/min (>60) Glucose Level 69 MG/DL (74-106) L Calcium Level 8.7 MG/DL (8.5-10.1) Plan Problems: (1) Severe sepsis Assessment & Plan: 73M with leukocytosis, abnormal labs, lactic acidosis, and left arm cellulitis no abscess left arm wound superficial no acute surgical intervention planned will follow with recs Leukocytosis resolved Overall improving -wash wound daily, apply xerofoam and abx, then wrap daily -IV Abx -warm compress -AM labs abx as per ID will follow with recs thank you (2) Left arm cellulitis Moody Siddiqi Mar 05, 2019 15:51
[2019-03-05 16:00] VITALS: BP 133/72
[2019-03-05] MEDS: cefTRIAXone 2 GM in D5W 55 ML IVPB SCH (17:09)
--- NOTE | 2019-03-05 19:40 | NUR ---
HAND-OFF: Report given to DENA Cruz. Patient is resting in bed.
--- NOTE | 2019-03-05 19:45 | NUR ---
NURSE NOTES: Pt is resting but responsive to name. Denies pain, no s/s of distress or SOB. Bed low, locked, call light within reach, side rails x 2, safety precautions enforced. L upper arm cellulitis present, dressing intact. IV is patent and asymptomatic. HR is 46-47 at this time. Will continue to monitor
[2019-03-05 20:00] VITALS: BP 142/97
[2019-03-05] MEDS: Tamsulosin 0.4mg cap ORAL SCH (22:06)
--- NOTE | 2019-03-05 23:21 | Cardiology Progress Note ---
Assessment/Plan Assessment/Plan 1. History of coronary artery disease, continue atorvastatin and aspirin. 2. History of hypertension, optimize amlodipine, hydralazine and enalapril. 3. Non-sustained ventricular tachycardia, Mg level 2.3, continue metoprolol. 4. History of hyperlipidemia, continue atorvastatin. Subjective Subjective Sinus bradycardia at rate of 47. Objective Last 24 Hour Vital Signs Date Time Temp Pulse Resp B/P (MAP) Pulse Ox O2 Delivery O2 Flow Rate FiO2 03/05/19 21:00 47 142/97 03/05/19 20:00 98.0 47 18 142/97 (112) 98 03/05/19 19:00 48 03/05/19 16:00 98.4 78 20 133/72 (92) 98 03/05/19 15:30 62 03/05/19 12:50 168/91 03/05/19 12:00 98.0 54 18 168/91 (116) 96 03/05/19 11:41 53 03/05/19 09:00 129/66 03/05/19 09:00 58 129/66 03/05/19 09:00 58 129/66 03/05/19 09:00 Room Air 03/05/19 08:00 98.0 58 18 145/82 (103) 96 03/05/19 07:35 45 03/05/19 04:00 97.6 72 18 115/69 (84) 97 03/05/19 04:00 46 03/05/19 00:00 97.9 66 19 111/71 (84) 96 03/05/19 00:00 51 Intake and Output 03/04/19 03/05/19 19:00 07:00 Intake Total 370 ml 110 ml Balance 370 ml 110 ml Intake Oral 370 ml IV Total 110 ml # Voids 3 2 # Bowel Movements 2 3 2D Echo: LVEF 65%, Mild LVH, Grade I LVDD, RVSP 14 mmHg Laboratory Tests Test 03/05/19 06:04 White Blood Count 8.8 K/UL (4.8-10.8) Red Blood Count 4.43 M/UL (4.70-6.10) L Hemoglobin 13.6 G/DL (14.2-18.0) L Hematocrit 39.4 % (42.0-52.0) L Mean Corpuscular Volume 89 FL (80-99) Mean Corpuscular Hemoglobin 30.8 PG (27.0-31.0) Mean Corpuscular Hemoglobin Concent 34.6 G/DL (32.0-36.0) Red Cell Distribution Width 11.3 % (11.6-14.8) L Platelet Count 194 K/UL (150-450) Mean Platelet Volume 7.5 FL (6.5-10.1) Neutrophils (%) (Auto) 70.7 % (45.0-75.0) Lymphocytes (%) (Auto) 15.8 % (20.0-45.0) L Monocytes (%) (Auto) 7.6 % (1.0-10.0) Eosinophils (%) (Auto) 5.2 % (0.0-3.0) H Basophils (%) (Auto) 0.7 % (0.0-2.0) Sodium Level 140 MMOL/L (136-145) Potassium Level 3.7 MMOL/L (3.5-5.1) Chloride Level 106 MMOL/L (98-107) Carbon Dioxide Level 27 MMOL/L (21-32) Anion Gap 7 mmol/L (5-15) Blood Urea Nitrogen 12 mg/dL (7-18) Creatinine 1.0 MG/DL (0.55-1.30) Estimat Glomerular Filtration Rate mL/min (>60) Glucose Level 69 MG/DL (74-106) L Calcium Level 8.7 MG/DL (8.5-10.1) Objective HEENT: Atraumatic and normocephalic. Anicteric. Pupils are equal, round, and reactive to light and accommodation. Extraocular muscles intact. NECK: JVP less than 5 cm. No carotid bruit. Carotid upstroke is 2+ bilaterally. CARDIOVASCULAR: Normal S1, S2. Regular rate and rhythm. No murmurs, gallops, or rubs. PMI is at fourth intercostal space in the midclavicular line. LUNGS: Clear to auscultation bilaterally. ABDOMEN: Soft, nontender, and nondistended. No hepatosplenomegaly. Positive bowel sounds. EXTREMITIES: Left arm in the dressing. Otherwise, no edema, clubbing, or cyanosis in the lower extremity. Jim Bae MD Mar 05, 2019 23:21
[2019-03-06] VITALS: BP 131/66
[2019-03-06 04:00] VITALS: BP 136/76
--- NOTE | 2019-03-06 05:45 | Progress Note ---
DATE: 03/05/2019 SUBJECTIVE: The patient is lying down flat on the bed, answering "no" and "I don't know" to most of the questions. The patient is confused. Per nurse, he had episodes of agitation earlier, poor cognition, compliant with care today. MENTAL STATUS EXAMINATION: The patient is alert, oriented times self. Mood in neutral. Affect is flat. Thought process, there is a paucity of thought content. Thought content, no suicidal or homicidal ideation. ASSESSMENT: 1. Dementia. 2. Anxiety disorder. PLAN: 1. Continue Remeron 7.5 at bedtime. 2. The patient lacks capacity to make any decision. 3. Discussed the case with the nurse. Annmarie Triana M.D. DR: Roger JOB#: [id number] CC: PATT
--- NOTE | 2019-03-06 07:28 | NUR ---
NURSE NOTES: Report received from DENA Cruz. AOx2. Breakfast tray given and repositioned for comfort. In RA. Denies any pain or SOB. Refused to show IV site but agrees to be checked after breakfast. Bed on lowest position, side rails upx2, breaks engaged, alarm on. Call light placed within easy reach.
[2019-03-06 07:41] LABS: BASOPHILS % (AUTO) 1.7 % (0.0-2.0); HEMATOCRIT 39.4 % (42.0-52.0); HEMOGLOBIN 13.6 G/DL (14.2-18.0); LYMPHOCYTES % (AUTO) 11.7 % (20.0-45.0); MEAN CORPUSCULAR VOLUME 88 FL (80-99); MONOCYTES % (AUTO) 8.8 % (1.0-10.0); NEUTROPHILS % (AUTO) 72.9 % (45.0-75.0); PLATELET COUNT 212 K/UL (150-450); RED BLOOD COUNT 4.46 M/UL (4.70-6.10)
--- NOTE | 2019-03-06 07:51 | NUR ---
HAND-OFF: Report given to DENA Murphy.
[2019-03-06 07:54] LABS: ANION GAP 7 mmol/L (5-15); BLOOD UREA NITROGEN 11 mg/dL (7-18); CALCIUM 8.9 MG/DL (8.5-10.1); CARBON DIOXIDE 26 MMOL/L (21-32); CHLORIDE 107 MMOL/L (98-107); POTASSIUM 3.9 MMOL/L (3.5-5.1); SODIUM 140 MMOL/L (136-145)
[2019-03-06 08:00] VITALS: BP 132/77
[2019-03-06] MEDS: Metoprolol Tartrate 50mg tab ORAL SCH (09:00)
[2019-03-06] MEDS ORDERED: Enalapril 5mg tab ORAL SCH (09:00)
[2019-03-06] MEDS ORDERED: CEFTRIAXONE2 G1 IJ (09:43)
--- NOTE | 2019-03-06 09:45 | General Progress Note ---
Assessment/Plan Status: stable Assessment/Plan: S: limited answering to the question O: not verbally communicative more than couple words. Seems comfortable PHYSICAL EXAMINATION: HEAD AND NECK: Atraumatic and normocephalic. CHEST: Clear to auscultation. HEART: S1, S2. Regular rate and rhythm. ABDOMEN: Soft. No organomegalyMUSCULOSKELETAL: No gross lateralized motor deficit. Significant improvement in diffuse erythema and warmness on the left upper extremity.NEUROLOGY: The patient is awake, alert x1. LABORATORY DATA: Laboratory work dated Mar 06, 2019, reviewed meds: including ceftriaxone ASSESSMENT: 1. Sepsis with Gram positive cocci 2. Left upper extremity cellulitis. 3. Hypertension. 4. BPH. 5. Psychiatric disorder. 6. GI and DVT prophylaxis. PLAN OF CARE: Interval decrease of WBC Ok to c/w abx in [facility] Subjective Allergies: Coded Allergies: No Known Allergies (Unverified , 03/01/19) Objective Last 24 Hour Vital Signs Date Time Temp Pulse Resp B/P (MAP) Pulse Ox O2 Delivery O2 Flow Rate FiO2 03/06/19 08:00 98.6 59 18 132/77 (95) 95 03/06/19 04:00 44 03/06/19 04:00 98.0 46 18 136/76 (96) 94 03/06/19 00:00 98.2 56 18 131/66 (87) 94 03/06/19 00:00 53 03/05/19 21:00 Room Air 03/05/19 21:00 47 142/97 03/05/19 20:00 98.0 47 18 142/97 (112) 98 03/05/19 19:00 48 03/05/19 16:00 98.4 78 20 133/72 (92) 98 03/05/19 15:30 62 03/05/19 12:50 168/91 03/05/19 12:00 98.0 54 18 168/91 (116) 96 03/05/19 11:41 53 Intake and Output 03/05/19 03/06/19 19:00 07:00 Intake Total 360 ml 6760 ml Output Total 120 ml Balance 360 ml 6640 ml Intake Oral 360 ml 360 ml IV Total 6400 ml Output Urine Total 120 ml # Voids 4 5 # Bowel Movements 3 3 Laboratory Tests 03/06/19 06:30: White Blood Count 9.0, Red Blood Count 4.46L, Hemoglobin 13.6L, Hematocrit 39.4L , Mean Corpuscular Volume 88, Mean Corpuscular Hemoglobin 30.5, Mean Corpuscular Hemoglobin Concent 34.5, Red Cell Distribution Width 11.0L, Platelet Count 212, Mean Platelet Volume 7.1, Neutrophils (%) (Auto) 72.9, Lymphocytes (%) (Auto) 11.7L, Monocytes (%) (Auto) 8.8, Eosinophils (%) (Auto) 5.0H, Basophils (%) (Auto) 1.7, Sodium Level 140, Potassium Level 3.9, Chloride Level 107, Carbon Dioxide Level 26, Anion Gap 7, Blood Urea Nitrogen 11, Creatinine 1.0, Estimat Glomerular Filtration Rate , Glucose Level 80, Calcium Level 8.9 Height (Feet): 5 Height (Inches): 8.00 Weight (Pounds): 160 Jm Bolton MD Mar 06, 2019 09:45
[2019-03-06] MEDS: Docusate 100mg cap ORAL SCH (09:48)
[2019-03-06] MEDS: Calcium Carbonate 500mg w/Vit D 200iu tab ORAL SCH (09:48)
[2019-03-06] MEDS: Heparin 5000 units/ml inj SUBQ SCH (09:50)
--- NOTE | 2019-03-06 10:30 | Surgery Progress Note ---
Surgery Progress Note Subjective Additional Comments no acute events labs stable exam improving Objective Last 24 Hour Vital Signs Date Time Temp Pulse Resp B/P (MAP) Pulse Ox O2 Delivery O2 Flow Rate FiO2 03/06/19 09:49 132/77 03/06/19 09:48 59 132/77 03/06/19 09:00 59 132/77 03/06/19 08:00 98.6 59 18 132/77 (95) 95 03/06/19 04:00 44 03/06/19 04:00 98.0 46 18 136/76 (96) 94 03/06/19 00:00 98.2 56 18 131/66 (87) 94 03/06/19 00:00 53 03/05/19 21:00 Room Air 03/05/19 21:00 47 142/97 03/05/19 20:00 98.0 47 18 142/97 (112) 98 03/05/19 19:00 48 03/05/19 16:00 98.4 78 20 133/72 (92) 98 03/05/19 15:30 62 03/05/19 12:50 168/91 03/05/19 12:00 98.0 54 18 168/91 (116) 96 03/05/19 11:41 53 I&O Intake and Output 03/05/19 03/06/19 19:00 07:00 Intake Total 360 ml 6760 ml Output Total 120 ml Balance 360 ml 6640 ml Intake Oral 360 ml 360 ml IV Total 6400 ml Output Urine Total 120 ml # Voids 4 5 # Bowel Movements 3 3 Dressing: dry Wound: clean Cardiovascular: RSR Respiratory: clear Abdomen: soft, flat, present bowel sounds, non-distended Extremities: no edema, no tenderness, no cyanosis, other Laboratory Tests Test 03/06/19 06:30 White Blood Count 9.0 K/UL (4.8-10.8) Red Blood Count 4.46 M/UL (4.70-6.10) L Hemoglobin 13.6 G/DL (14.2-18.0) L Hematocrit 39.4 % (42.0-52.0) L Mean Corpuscular Volume 88 FL (80-99) Mean Corpuscular Hemoglobin 30.5 PG (27.0-31.0) Mean Corpuscular Hemoglobin Concent 34.5 G/DL (32.0-36.0) Red Cell Distribution Width 11.0 % (11.6-14.8) L Platelet Count 212 K/UL (150-450) Mean Platelet Volume 7.1 FL (6.5-10.1) Neutrophils (%) (Auto) 72.9 % (45.0-75.0) Lymphocytes (%) (Auto) 11.7 % (20.0-45.0) L Monocytes (%) (Auto) 8.8 % (1.0-10.0) Eosinophils (%) (Auto) 5.0 % (0.0-3.0) H Basophils (%) (Auto) 1.7 % (0.0-2.0) Sodium Level 140 MMOL/L (136-145) Potassium Level 3.9 MMOL/L (3.5-5.1) Chloride Level 107 MMOL/L (98-107) Carbon Dioxide Level 26 MMOL/L (21-32) Anion Gap 7 mmol/L (5-15) Blood Urea Nitrogen 11 mg/dL (7-18) Creatinine 1.0 MG/DL (0.55-1.30) Estimat Glomerular Filtration Rate mL/min (>60) Glucose Level 80 MG/DL (74-106) Calcium Level 8.9 MG/DL (8.5-10.1) Plan Problems: (1) Severe sepsis Assessment & Plan: 73M with leukocytosis, abnormal labs, lactic acidosis, and left arm cellulitis no abscess left arm wound superficial no acute surgical intervention planned will follow with recs Leukocytosis resolved Overall improving -wash wound daily, apply xerofoam and abx, then wrap daily -IV Abx -warm compress -AM labs abx as per ID d/c planning from surgical standpoint cont with above wound care plan outpt follow up will follow with recs thank you (2) Left arm cellulitis Moody Siddiqi Mar 06, 2019 10:30
--- NOTE | 2019-03-06 11:45 | NUR ---
NURSE NOTES: Report given to GAUTAM Coker RN. Pt. ETA time 1430.
--- NOTE | 2019-03-06 11:51 | NUR ---
DISCHARGED PLANNED: DISCUSSED DISCHARGE WITH PATIENT AT BEDSIDE PATIENT TO RETURN TO [facility] ROOM#21B SKILLED NURSING T: [phone] FOR NURSE TO NURSE REPORT F: [phone] [facility] HAS BEEN ARRANGE FOR 1430
[2019-03-06 12:00] VITALS: BP 129/89
--- NOTE | 2019-03-06 14:30 | NUR ---
NURSE NOTES: DISCHARGE Note Pt. aware of DC plans. Son called, left a message, waiting for a call back. VS stable. IV intact, flushed, SL. Pt. to leave with IV per MD order. Wound dressing changed. Belongings checked with Pt. Given to ambulance personnel (Goldie). Medication teaching done. grades 9 through 12 teacher removed. Name band removed. Left floor safely accompanied by [facility] personnel.
[2019-03-06 16:00] VITALS: BP 145/71
[2019-03-06] MEDS: cefTRIAXone 2 GM in D5W 55 ML IVPB SCH (17:00)
--- NOTE | 2019-03-06 17:15 | Progress Note ---
DATE: 03/06/2019 SUBJECTIVE: The patient is in bed. Calm. No behavior issues. His mental condition is unchanged since previous encounter. Overall, improving. Not engaged and perseverates, "I do not know." MENTAL STATUS EXAMINATION: Alert and oriented times self and place. Mood is neutral to dysphoric. Affect is flat. Thought process, there is a paucity of thought content. Thought content, no suicidal or homicidal ideation. ASSESSMENT: Cognitive impairment. The patient lacks capacity to make decisions. PLAN: We will continue current medications. Provide the patient with reality orientation and supportive therapy. Annmarie Triana M.D. DR: KHRIS JOB#: [id number] CC:
--- NOTE | 2019-03-06 19:08 | Cardiology Progress Note ---
Assessment/Plan Assessment/Plan 1. History of coronary artery disease, continue atorvastatin and aspirin. 2. History of hypertension, optimize amlodipine, hydralazine and enalapril. 3. Non-sustained ventricular tachycardia, Mg level 2.3, continue metoprolol. 4. History of hyperlipidemia, continue atorvastatin. Subjective Subjective Sinus rhythm at rate of 60. Objective Last 24 Hour Vital Signs Date Time Temp Pulse Resp B/P (MAP) Pulse Ox O2 Delivery O2 Flow Rate FiO2 03/06/19 16:00 97.7 60 18 145/71 (95) 99 03/06/19 12:00 51 03/06/19 12:00 97.6 58 18 129/89 (102) 98 03/06/19 09:49 132/77 03/06/19 09:48 59 132/77 03/06/19 09:00 Room Air 03/06/19 09:00 59 132/77 03/06/19 08:00 98.6 59 18 132/77 (95) 95 03/06/19 08:00 59 03/06/19 04:00 44 03/06/19 04:00 98.0 46 18 136/76 (96) 94 03/06/19 00:00 98.2 56 18 131/66 (87) 94 03/06/19 00:00 53 03/05/19 21:00 Room Air 03/05/19 21:00 47 142/97 03/05/19 20:00 98.0 47 18 142/97 (112) 98 Intake and Output 03/05/19 03/06/19 19:00 07:00 Intake Total 360 ml 6760 ml Output Total 120 ml Balance 360 ml 6640 ml Intake Oral 360 ml 360 ml IV Total 6400 ml Output Urine Total 120 ml # Voids 4 5 # Bowel Movements 3 3 2D Echo: LVEF 65%, Mild LVH, Grade I LVDD, RVSP 14 mmHg Laboratory Tests Test 03/06/19 06:30 White Blood Count 9.0 K/UL (4.8-10.8) Red Blood Count 4.46 M/UL (4.70-6.10) L Hemoglobin 13.6 G/DL (14.2-18.0) L Hematocrit 39.4 % (42.0-52.0) L Mean Corpuscular Volume 88 FL (80-99) Mean Corpuscular Hemoglobin 30.5 PG (27.0-31.0) Mean Corpuscular Hemoglobin Concent 34.5 G/DL (32.0-36.0) Red Cell Distribution Width 11.0 % (11.6-14.8) L Platelet Count 212 K/UL (150-450) Mean Platelet Volume 7.1 FL (6.5-10.1) Neutrophils (%) (Auto) 72.9 % (45.0-75.0) Lymphocytes (%) (Auto) 11.7 % (20.0-45.0) L Monocytes (%) (Auto) 8.8 % (1.0-10.0) Eosinophils (%) (Auto) 5.0 % (0.0-3.0) H Basophils (%) (Auto) 1.7 % (0.0-2.0) Sodium Level 140 MMOL/L (136-145) Potassium Level 3.9 MMOL/L (3.5-5.1) Chloride Level 107 MMOL/L (98-107) Carbon Dioxide Level 26 MMOL/L (21-32) Anion Gap 7 mmol/L (5-15) Blood Urea Nitrogen 11 mg/dL (7-18) Creatinine 1.0 MG/DL (0.55-1.30) Estimat Glomerular Filtration Rate mL/min (>60) Glucose Level 80 MG/DL (74-106) Calcium Level 8.9 MG/DL (8.5-10.1) Objective HEENT: Atraumatic and normocephalic. Anicteric. Pupils are equal, round, and reactive to light and accommodation. Extraocular muscles intact. NECK: JVP less than 5 cm. No carotid bruit. Carotid upstroke is 2+ bilaterally. CARDIOVASCULAR: Normal S1, S2. Regular rate and rhythm. No murmurs, gallops, or rubs. PMI is at fourth intercostal space in the midclavicular line. LUNGS: Clear to auscultation bilaterally. ABDOMEN: Soft, nontender, and nondistended. No hepatosplenomegaly. Positive bowel sounds. EXTREMITIES: Left arm in the dressing. Otherwise, no edema, clubbing, or cyanosis in the lower extremity. Jim Bae MD Mar 06, 2019 19:08
--- NOTE | 2019-03-07 07:43 | Discharge Summary ---
Discharge Summary Discharge Summary _ DATE OF ADMISSION: 03/01/2019 DATE OF DISCHARGE: 03/06/2019 DISCHARGED BY: Dr. Bolton REASON FOR ADMISSION: 73 years old male with past medical history of hypertension, coronary artery disease, hyperlipidemia, BPH, encephalopathy, presented from alf facility with left upper extremity redness and swelling. Patient reported gradual onset of symptoms. History was markedly limited by patient 's mental status Vital signs revealed no fever and were stable. Laboratory work-up revealed severe leukocytosis with WBC 36.7, hemoglobin 14.8 , hematocrit 45.3. Platelet count 176. Lactic acid 2.4. Stable electrolytes. BUN 23, creatinine 1.4 . Glucose 116. Stable LFT. Troponin negative. Albumin 3.2. EKG revealed sinus rhythm, no acute ischemic changes. Chest x-ray demonstrated no acute cardiopulmonary pathology. Patient pancultured , started on IV fluids and empiric antibiotics and admitted for further management. CONSULTANTS: mate ship Dr. Catalino [place] specialist Dr. Higgins surgery Dr. Siddiqi psychiatrist [facility] COURSE: Patient admitted to telemetry floor and started on empiric antibiotic as per ID specialist recommendation. Blood culture revealed Strep group A. Wound culture revealed Strep pyogenes group A and Staph coagulase negative. Repeated blood culture on 03/05 were negative. Leukocytosis trended down and resolved upon discharge. No fevers. Echocardiogram revealed preserved ejection fraction of 65% with mild left ventricular hypertrophy. No evidence of wall motion abnormality. No evidence of pericardial effusion. No evidence of vegetation. Right ventricular systolic pressure of 14. ID specialist recommended continue antibiotics to complete the course . [employer] followed. Antiplatelet therapy and statin were continued. Blood pressure was managed with multiple antihypertensive medications, including calcium channel darren, beta-darren and ANIVAL inhibitor . Antihypertensive regimen was optimized to keep blood pressure under control. Patient was noted to have episode of nonsustained ventricular tachycardia. Magnesium level was stable. Beta-darren continued. DVT and GI prophylaxis provided Proscar and Flomax continued. Pain management was addressed as needed. Bowel regimen instituted. Surgeon seen and evaluated patient and followed-up with daily clinical exams. No evidence of abscess. Left arm wound was superficial. No acute surgical intervention was necessary at this time. Wound care provided as per surgeon recommendation. Warm compresses provided. Antibiotics continued. Patient will need to continue with wound care at the facility and complete antibiotic course. Psychiatrist seen and evaluated patient. Psychiatric medication regimen was optimized as per psychiatrist. Patient was provided with reality orientation and supportive therapy. Per psychiatrist , patient had cognitive impairment and lacked capacity to make informed decisions. Patient clinically stabilized and was ready for transfer back to alf facility for continuation of care. FINAL DIAGNOSES: Severe sepsis Left arm cellulitis Coronary artery disease Hypertension Non-sustained ventricular tachycardia Hyperlipidemia BPH Dementia Anxiety disorder DISCHARGE MEDICATIONS: See Medication Reconciliation list. DISCHARGE INSTRUCTIONS: Patient was discharged to the alf facility. Follow up with medical doctor at the facility. Complete antibiotic course at the facility. Continue wound care at the facility. I have been assigned to dictate discharge summary for this account. I was not involved in the patient's management. Maria Isabel Werner NP Mar 07, 2019 07:43
== END 2019-03-06 17:58 | DRG 872 ==
LOC: EDBD 12:20 → EMR 12:50 → EDBEDREQSVC 13:24 → 2E 13:28 → EDBEDREQ 15:06
DX: A40.0 Sepsis due to streptococcus, group A (principal); L03.114 Cellulitis of left upper limb; L02.414 Cutaneous abscess of left upper limb; I47.2 Ventricular tachycardia; R65.20 Severe sepsis without septic shock; I10 Essential (primary) hypertension; N40.0 Benign prostatic hyperplasia without lower urinary tract symptoms; I25.10 Atherosclerotic heart disease of native coronary artery without angina pectoris; E78.5 Hyperlipidemia, unspecified; F03.90 Unspecified dementia, unspecified severity, without behavioral disturbance, psychotic disturbance, mood disturbance, and anxiety; F41.9 Anxiety disorder, unspecified; K21.9 Gastro-esophageal reflux disease without esophagitis; F99 Mental disorder, not otherwise specified
CPT/HCPCS: 36415; 71045; 80048; 80053; 80202; 81003; 82550; 82553; 83605; 83735; 84484; 85007; 85025; 87040; 87070; 87081; 87181; 87205; 93005; 93306; 96365; 96366; 96368; 99285